=== PATIENT | female | born 1950 | race Hispanic/Latino ===

== ENCOUNTER 2017-05-08 22:49 | Emergency (ER) | payer MEDICARE ==
[2017-05-09 00:19] LABS: #Basophils 0.1 thou/uL (0.0-0.2); #Eosinphils 0.3 thou/uL (0.0-0.7); #Lymphocytes 1.5 thou/uL (1.20-3.40); #Monocytes 0.4 thou/uL (0.11-0.59); #Neutrophils 2.7 thou/uL (1.40-6.50); %Basophils 1.2 % (0.0-1.0); %Eosinophils 5.6 % (0.0-10.0); %Lymphocytes 30.1 % (21.0-51.0); %Monocytes 8.5 % (0.0-10.0); Mean Platelet Volume 7.7 fL (7.4-10.4); Red Blood Cell (RBC) Count 3.94 mill/uL (4.20-5.40); White Blood Cell (WBC) Count 4.8 thou/uL (4.8-10.8)
[2017-05-09 00:20] LABS: ALT (SGPT) 48 U/L (8-55); AST (SGOT) 80 U/L (5-34); Alkaline Phosphatase 151 U/L (40-150); Anion Gap 12 mmol/L (10-20); BUN (Urea Nitrogen) 12 mg/dL (9.8-20.1); Bilirubin, Total 1.5 mg/dL (0.2-1.2); Calc. Creatinine Clearance 0 mL/min (70-130); Carbon Dioxide 23 mmol/L (23-31); Chloride 107 mmol/L (98-107); Estimated GFR-MDRD 90; Globulin 3.9 g/dL (2.4-3.5); Protein, Total 6.9 g/dL (6.0-8.3)
[2017-05-09 00:21] LABS: Bilirubin Negative (Negative); Blood, Urine Negative (Negative); Glucose, Urine (Dipstick) Negative (Negative); Ketone, Urine Negative (Negative); Nitrite Negative (Negative); Protein, Urine (Dipstick) Negative (Neg-Trace); Urobilinogen 0.2 mg/dL (0.2-1.0)
[2017-05-09 00:24] LABS: Bacteria/HPF None Seen HPF (None Seen); Hyaline Casts/LPF 0-3 HYALINE CAST LPF (0-3 Hyaline); Squamous Epithelial 0-3 HPF (0-3); WBC/HPF 0-3 HPF (0-3)
[2017-05-09] MEDS ORDERED: Ibuprofen 800 MG TAB ONE (00:49)
== END 2017-05-09 00:53 | disposition home or self-care (01) ==
LOC: ERS 22:49
DX: R10.11 Right upper quadrant pain (principal); R10.12 Left upper quadrant pain; I10 Essential (primary) hypertension; K74.60 Unspecified cirrhosis of liver
CPT/HCPCS: 36415; 80053; 81003; 81015; 85025

== ENCOUNTER 2017-05-16 09:53 | Outpatient (CLI) | payer MEDICARE ==
--- NOTE | 2017-05-16 13:51 | ULT ---
HEPATIC DOPPLER ULTRASOUND: INDICATION: Abnormal liver. COMPARISON: Prior exam dated 10/14/10. TECHNIQUE: Sepulveda scale, color Doppler, vascular duplex, and spectral analysis was performed of the right upper qu adrant and hepatic vasculature. FINDINGS: The liver has a nodular contour consistent with cirrhosis. The spleen measures 10.8 cm in length. N o focal hepatic lesion is evident. No free fluid is noted. The right kidney measures 11.3 cm. Appr opriate hepatopetal flow is seen within the hepatic vasculature. IMPRESSION: 1. Findings of cirrhosis. 2. Appropriate hepatopetal flow is seen within the hepatic vasculature. POS: [facility]
== END 2017-05-16 09:54 | disposition home or self-care (01) ==
LOC: ULT 09:53
DX: K74.60 Unspecified cirrhosis of liver (principal); K76.0 Fatty (change of) liver, not elsewhere classified
CPT/HCPCS: 76705

== ENCOUNTER 2017-07-17 11:17 | Emergency (ER) | payer MEDICARE ==
[2017-07-17] MEDS ORDERED: ISOVUE-370 76%-LOCM 1 ML ONE (12:43)
--- NOTE | 2017-07-17 13:05 | RAD ---
CHEST 1 VIEW: HISTORY: Cough. Chest pain. COMPARISON: 10/14/12. FINDINGS: Cardiac silhouette is magnified by projection. Pulmonary vasculature is unremarkable. Mediastinum i s midline. There is no confluent airspace consolidation or evidence of pneumothorax. IMPRESSION: No active cardiopulmonary abnormalities are demonstrated. POS: [facility]
[2017-07-17 13:07] LABS: #Eosinphils 0.1 thou/uL (0.0-0.7); #Lymphocytes 1.7 thou/uL (1.20-3.40); #Monocytes 0.4 thou/uL (0.11-0.59); #Neutrophils 1.3 thou/uL (1.40-6.50); %Basophils 0.5 % (0.0-1.0); %Lymphocytes 47.7 % (21.0-51.0); %Neutrophils 36.8 % (42.0-75.0); Hemoglobin 13.3 g/dL (12.0-16.0); Mean Corpuscular HGB CONC 34.7 g/dL (32.0-36.0); Mean Corpuscular Hemoglobin 32.6 pg (27.0-31.0); Platelet Count 87 thou/uL (130-400); RBC Distribution Width 13.4 % (11.5-14.5); Red Blood Cell (RBC) Count 4.06 mill/uL (4.20-5.40); White Blood Cell (WBC) Count 3.5 thou/uL (4.8-10.8)
[2017-07-17 13:12] LABS: Bilirubin Negative (Negative); Blood, Urine Negative (Negative); Clarity CLEAR (Clear); Glucose, Urine (Dipstick) Negative (Negative); Leukocyte Negative (Negative); Nitrite Negative (Negative); Protein, Urine (Dipstick) Negative (Neg-Trace); Specific Gravity, Urine 1.007 (1.002-1.036)
[2017-07-17 13:50] LABS: ALT (SGPT) 66 U/L (8-55); AST (SGOT) 104 U/L (5-34); Albumin 2.9 g/dL (3.4-4.8); Alkaline Phosphatase 128 U/L (40-150); Anion Gap 11 mmol/L (10-20); BUN (Urea Nitrogen) 5 mg/dL (9.8-20.1); Bilirubin, Total 1.6 mg/dL (0.2-1.2); Calc. Creatinine Clearance 0 mL/min (70-130); Carbon Dioxide 24 mmol/L (23-31); Chloride 107 mmol/L (98-107); Estimated GFR-MDRD Greater than 90; Globulin 3.8 g/dL (2.4-3.5); Glucose 89 mg/dL (80-115); Lipase 42 U/L (8-78); Potassium 3.7 mmol/L (3.5-5.1); Protein, Total 6.7 g/dL (6.0-8.3); Sodium 138 mmol/L (136-145)
--- NOTE | 2017-07-17 15:43 | CT ---
CT ABDOMEN AND PELVIS WITH IV CONTRAST: History: 66-year-old female with history of cough. Patient claims she has a hernia. Prior cholecystectomy and hysterectomy. Comparison: 01-16-09 FINDINGS: Lung bases are clear. There is evidence for a moderate of ascites in the abdomen and pelvis. Liver co ntour nodularity is noted, evidence for cirrhosis without focal liver mass. Status post cholecystecto my. Pancreas is unremarkable. Minimal splenomegaly. No renal calculus or acute obstruction. Normal appearing appendix. Fat containing and acidic fluid containing periumbilical hernia. No bowel obstru ction, abscess or adenopathy. Some mild nonspecific central mesenteric fat stranding. IMPRESSION: Moderate ascites. Evidence of cirrhosis without focal liver mass. Fat and acidic fluid paraumbilical hernia. [place] opacity within the cecum. Normal appearing appendix. Minimal splenomegaly. No evidence for other significant acute process. POS: [facility]
== END 2017-07-17 15:08 | disposition home or self-care (01) ==
LOC: ERS 11:17
DX: K42.9 Umbilical hernia without obstruction or gangrene (principal); K74.60 Unspecified cirrhosis of liver; I10 Essential (primary) hypertension; Z79.899 Other long term (current) drug therapy
CPT/HCPCS: 36415; 71045; 74177; 80053; 81003; 83690; 85025

== ENCOUNTER 2017-11-15 09:50 | Outpatient (CLI) | payer MEDICARE ==
[2017-11-15 11:10] LABS: Estimated GFR-MDRD - POC Greater than 90
--- NOTE | 2017-11-15 12:42 | CT ---
CT ABDOMEN WITH AND WITHOUT CONTRAST: INDICATIONS: Abdominal pain with nausea, vomiting, and diarrhea. History of umbilical hernia. Surgery includes a cholecystectomy and a hysterectomy. Abdomen only exam is adequate for evaluation of diffuse abdomin al pain, as the lower intestinal tract and pelvis are not imaged. TECHNIQUE: Multiple axial tomograms obtained through the abdomen without IV enhancement. This was followed by [place] through the abdomen with IV contrast in the portal venous phase. Oral contrast was administere d. FINDINGS: The stomach is not well distended. There is diffuse mural thickening involving the stomach and pylor us, of uncertain significance. The lung bases are clear. The liver is small with irregular margins, consistent with changes of cirr hosis. The spleen is normal in size. The pancreas is unremarkable. Mild to moderate ascites is see n in the abdomen with fluid around the liver and spleen and in both colonic gutters. The adrenal glands and kidneys are unremarkable. A tiny cystic lesion in the posterior right renal c ortex is subcentimeter. No hydronephrosis. The visualized small bowel loops show nonspecific distention without evidence of dilatation. Finding s do not suggest bowel obstruction. The colon is only partially imaged but appears unremarkable. There is an anterior abdominal wall hernia seen on the last image, which is only partially evaluated. The anterior abdominal wall defect measures approximately 1.5 cm. Mesenteric fat herniated through this defect, and a hernia sac within the subcutaneous tissues measures 4.5 cm in width in the axial plane. IMPRESSION: 1. Small liver with irregular margins suggesting changes of cirrhosis. No splenomegaly or evidence of significant portal hypertension. 2. Moderate ascites. 3. Nonspecific small bowel distention, and evidence of mild fold thickening and mural thickening, al though the bowel is incompletely evaluated. 4. Small anterior abdominal wall hernia is incompletely imaged. 5. Nonspecific gastric wall thickening. POS: [facility]
[2017-11-15] MEDS ORDERED: Iopamidol 370 76% 100 ML VIAL ONE (15:07)
== END 2017-11-15 09:51 | disposition home or self-care (01) ==
LOC: BICCT 09:50 → CT 09:51
PROVIDERS: ATTEND Internal Medicine Gastroenterology
DX: K31.89 Other diseases of stomach and duodenum (principal); K63.89 Other specified diseases of intestine; K43.9 Ventral hernia without obstruction or gangrene; K76.89 Other specified diseases of liver; R18.8 Other ascites
CPT/HCPCS: 74170; 82565

== ENCOUNTER 2018-08-28 09:06 | Outpatient (CLI) | payer MEDICARE, OTHER ==
--- NOTE | 2018-08-28 11:17 | ULT ---
HEPATIC ULTRASOUND WITH DOPPLER: INDICATIONS: Cirrhosis. The patient is status post cholecystectomy. FINDINGS: The liver has a nodular contour, consistent with the history of cirrhosis. The liver is small, which is also consistent with the history of cirrhosis. No focal mass lesion identified. Doppler studies were performed with color Doppler and spectral analysis. The portal veins, hepatic v eins, hepatic artery, and splenic veins show normal blood flow with Doppler. The right portal vein i s not well demonstrated. There is evidence of moderate ascites. Borderline splenomegaly. The pancreas is obscured. IMPRESSION: Liver findings consistent with history of cirrhosis, as noted above. There is evidence of low volume ascites in both upper quadrants. Borderline splenomegaly. Hepatic vessels show normal blood flow w ith color Doppler and spectral analysis. POS: [facility]
== END 2018-08-28 09:07 | disposition home or self-care (01) ==
LOC: BICULT 09:06
PROVIDERS: ATTEND Surgery
DX: K74.60 Unspecified cirrhosis of liver (principal); K43.2 Incisional hernia without obstruction or gangrene; R18.8 Other ascites; R16.1 Splenomegaly, not elsewhere classified
CPT/HCPCS: 76705

== ENCOUNTER 2018-09-06 16:00 | Emergency (ER) | payer MEDICARE, OTHER ==
[2018-09-06] MEDS ORDERED: Metoclopramide HCl 10 MG/2 ML VIAL ONE (16:52)
[2018-09-06] MEDS ORDERED: diphenhydrAMINE 50 MG/ML VIAL ONE (16:52)
[2018-09-06 17:02] LABS: #Eosinphils 0.2 thou/uL (0.0-0.7); #Lymphocytes 1.3 thou/uL (1.20-3.40); #Monocytes 0.6 thou/uL (0.11-0.59); #Neutrophils 2.9 thou/uL (1.40-6.50); %Lymphocytes 26.5 % (21.0-51.0); %Monocytes 10.8 % (0.0-10.0); %Neutrophils 57.7 % (42.0-75.0); Hemoglobin 11.9 g/dL (12.0-16.0); Mean Corpuscular HGB CONC 33.2 g/dL (32.0-36.0); Mean Corpuscular Hemoglobin 31.2 pg (27.0-31.0); Mean Corpuscular Volume 93.9 fL (78.0-98.0); Mean Platelet Volume 8.1 fL (7.4-10.4); Platelet Count 81 thou/uL (130-400); RBC Distribution Width 13.1 % (11.5-14.5); Red Blood Cell (RBC) Count 3.83 mill/uL (4.20-5.40)
--- NOTE | 2018-09-06 17:05 | CT ---
FCT brain. HISTORY: Headache. Noncontrast enhanced CT images of the brain obtained. No evidence of intracranial masses, hemorrhages, strokes or contusion is seen. Ventricles are of norm al size. IMPRESSION: Normal CT brain.
[2018-09-06 17:21] LABS: ALT (SGPT) 30 U/L (8-55); AST (SGOT) 51 U/L (5-34); Albumin 3.1 g/dL (3.4-4.8); Alkaline Phosphatase 137 U/L (40-150); Anion Gap 9 mmol/L (10-20); BUN (Urea Nitrogen) 7 mg/dL (9.8-20.1); Bilirubin, Total 1.5 mg/dL (0.2-1.2); Calc. Creatinine Clearance 0 mL/min (70-130); Carbon Dioxide 27 mmol/L (23-31); Chloride 104 mmol/L (98-107); Estimated GFR-MDRD 85; Globulin 4.1 g/dL (2.4-3.5); Glucose 120 mg/dL (80-115); Potassium 3.6 mmol/L (3.5-5.1); Protein, Total 7.2 g/dL (6.0-8.3); Sodium 136 mmol/L (136-145)
== END 2018-09-06 19:36 | disposition home or self-care (01) ==
LOC: ERS 16:00
DX: R51 Headache (principal); I10 Essential (primary) hypertension; K74.60 Unspecified cirrhosis of liver; Z79.899 Other long term (current) drug therapy
CPT/HCPCS: 70450; 80053; 85025; 96365; 96375; J1200; J2765

== ENCOUNTER 2019-11-28 13:42 | Inpatient (IN) | payer MEDICARE, OTHER ==
[2019-11-28 15:09] VITALS: BMI 28.3
[2019-11-28] MEDS ORDERED: Calcium Carbonate 500 MG ChewTAB PO PRN (16:51)
[2019-11-28] MEDS ORDERED: Ondansetron ODT 4 MG TAB PO PRN (16:51)
[2019-11-28] MEDS ORDERED: Loperamide HCl 2 MG CAP PO PRN (16:51)
[2019-11-28] MEDS ORDERED: Benzonatate 100 MG CAP PO PRN (16:55)
[2019-11-28 17:59] LABS: Anion Gap 11 mmol/L (10-20); BUN (Urea Nitrogen) 12 mg/dL (9.8-20.1); Calc. Creatinine Clearance 80 mL/min (70-130); Calcium 8.3 mg/dL (7.8-10.44); Carbon Dioxide 20 mmol/L (23-31); Chloride 99 mmol/L (98-107); Estimated GFR-MDRD 80; Glucose 128 mg/dL (80-115); Lipase 49 U/L (8-78); Potassium 3.7 mmol/L (3.5-5.1); Sodium 126 mmol/L (136-145); Troponin I 0.014 ng/mL (< 0.028)
--- NOTE | 2019-11-28 18:08 | HP ---
PRIMARY CARE PHYSICIAN: Dr. Sena. CHIEF COMPLAINT: Shortness of breath x2 days. HISTORY OF PRESENT ILLNESS: The patient is a 68-year-old female with a past medical history significant for cirrhosis and hypertension, who presents to the ER for the above complaint. The patient reports that over the past several days, she has become increasingly short of breath. She reports that she has an associated nonproductive cough, fever, and diarrhea. She estimates that she has three stools per day. She denies any abdominal pain and vomiting. She denies any blood in her stools. She denies dysuria. She denies sore throat or headache. She reports that her sister tested positive for COVID a week ago that she has come into contact with her. She also reports that she has scheduled paracentesis approximately two times per month. She was scheduled to go yesterday, however, did not need it. Her abdominal ultrasound did not show a significant amount of abdominal fluid. For the aforementioned reasons, her family took her to [facility]. At the [facility] ER, the patient was found to be hypoxic, VBG pH 7.48, HCO3 20.5, CO2 28.6, PO2 43, Sp02 92% on room air with normal blood pressure, normal heart rate, and normal respiratory rate. She was placed on 2 L nasal cannula and her oxygen improved to 97%. She was found to be COVID negative, flu A positive. Chest x-ray showed a moderate large right pleural effusion. She had a negative troponin. She had a sodium of 122. Her INR was 0.9. Her WBCs were 3.9. Her platelets were 75. Her UA showed some moderate blood and some small bilirubin. Her T-bilirubin was 1.9 and the rest of her LFTs were within normal range. She was given 1 L of normal saline, Tylenol, Pepcid, and Zofran and sent to the [facility] for further evaluation and treatment. PAST MEDICAL HISTORY: 1. Hypertension. 2. Cirrhosis. SURGICAL HISTORY: 1. Hysterectomy. 2. Tubal ligation. 3. Cholecystectomy. SOCIAL HISTORY: The patient lives with her son. She is retired. She denies any history of smoking, alcohol, or illicit drug use. She lives in [place]. FAMILY HISTORY: Contributory for hypertension, contributory for diabetes. ALLERGIES: NO KNOWN ALLERGIES. HOME MEDICATIONS: 1. Spironolactone, unknown dose. 2. Furosemide twice a day, unknown dose. 3. Metoprolol, unknown dose. REVIEW OF SYSTEMS: All other review of systems are negative unless otherwise stated in the HPI. PHYSICAL EXAMINATION: VITAL SIGNS: Temperature 98.6 oral, blood pressure 129/52, pulse 89, respirations 18, 97% on 2 L nasal cannula. CONSTITUTIONAL: The patient is alert and oriented to person, place, and time. Nontoxic appearing. No acute distress. HEENT: Head; atraumatic, normocephalic. Eyes; PERRLA. Extraocular muscles are intact. Sclerae nonicteric. ENT; nares are patent bilaterally. Bilateral EACs patent. TMs are intact bilaterally. Oropharynx is clear. Uvula is midline. Moist mucous membranes. RESPIRATORY: Respirations are even and nonlabored. The patient has mild expiratory wheezes to auscultation. No rhonchi, no rales. CARDIOVASCULAR: S1, S2 appreciated. No murmurs, rubs, or gallops. ABDOMEN: Soft, nontender, slightly distended. Active bowel sounds. No guarding. No rigidity. No rebound. Negative Rovsing's sign. No abdominal bruit auscultated. EXTREMITIES: Bilateral upper extremities, full range of motion. Strength normal. Sensation intact. Palpable radial pulses. Bilateral lower extremities, full range of motion, normal strength, sensation intact. Palpable pedal pulses. No swelling. NEURO: The patient is alert and oriented to person, place, and time. Cranial nerves 2 through 12 intact. No focal deficits. PSYCH: The patient normal affect. Denies any suicidal, homicidal ideation. LABS AND DIAGNOSTICS: EKG, sinus rhythm. 96 beats per minute. Chest x-ray positive for [id number] right pleural effusion. Initial troponin negative. CK 79. VBGs, pH 7.48, bicarb 20.5, CO2 of 28.6, PO2 of 43. COVID negative. Flu A positive. Sodium 122, potassium 3.3, chloride 93, carbon dioxide 22, BUN 14, creatinine 0.9, glucose 137, T bilirubin 1.9, alkaline phosphatase 82, AST 28, ALT 59, GGT was 48. UA was positive for moderate blood, small bilirubin. PT 11.4, INR 0.9. WBCs 3.9, hemoglobin 12.4, hematocrit 34.7, platelets 75. IMPRESSION AND PLAN: 1. Acute hypoxic respiratory failure secondary to influenza A, admit the patient to telemetry floor inpatient status, expected length of stay at least two midnights. The patient presented with VBG pH 7.48, CO2 28.6, HCO3 20.5, PO2 43. EKG was sinus rhythm. Chest x-ray showed moderate to large right pleural effusion. She was flu A positive. Blood cultures and urine cultures were taken and are pending. Upon exam, patient is resting well. 2 L nasal cannula saturating 97% on room air. No respiratory distress. We will start Tamiflu. We will place the patient on droplet precautions. We will check another troponin. EKG was sinus rhythm, 96. We will order a BNP. We will recheck a BMP for baseline electrolyte status. 2. Right pleural effusion, [id number]. The patient presented with a PO2 of 43 on VBGs, SpO2 is 92% on room air. EKG was normal sinus rhythm, 96 beats per minute. On exam, patient was in no acute respiratory distress. We will consult Pulmonology to determine if therapeutic thoracentesis is necessary. We will place the patient on a fluid restriction of 2 L. We will check daily weights. We will get a baseline BNP and get a delta troponin. Supportive care. 3. Hyponatremia. The patient presented with a sodium of 122, baseline appears to be 130s. The patient received 1 L of normal saline at previous ER. We will get serum osmols, check a urine sodium and urine osmolality. We will check a TSH and a cortisol. We will fluid restrict the patient 2 L and we will hold diuretics until etiology confirmed. We will recheck a BMP in the a.m. 4. Cirrhosis, chronic. The patient reports that she gets paracentesis twice per month and was scheduled for paracentesis yesterday. Abdominal ultrasound showed that there was not enough fluid to perform paracentesis per patient. The patient's INR 0.9. The patient's platelets 75. T bilirubin is 1.9 with normal alkaline phosphatase, AST, ALT, and GGT. We will check PT/INR in the a.m. 5. Hypertension. The patient reports taking metoprolol, furosemide, and spironolactone, unknown dose. Awaiting nursing to confirm doses. We will start metoprolol. We will hold diuretics at this time until etiology of hyponatremia is determined. 6. Consult PT. No pharmaco-prophylaxis for DVT. SCDs for DVT prophylaxis. The patient is a full code and POA is going to be her daughter, Carmella Merrill, unknown number. 7. Discussed the case with Dr. Carlin. Job ID: [id number] MTDD
[2019-11-28] MEDS ORDERED: Furosemide 20 MG/2 ML VIAL SLOW IVP SCH (19:45)
[2019-11-28] MEDS ORDERED: Famotidine 20 MG TAB PO SCH (21:00)
[2019-11-28] MEDS: Acetaminophen 325 MG TAB PO PRN (21:03)
[2019-11-28] MEDS: Spironolactone 25 MG TAB PO SCH (21:03)
[2019-11-28] MEDS: Oseltamivir 75 MG CAP PO SCH (21:04)
[2019-11-29 04:53] LABS: INR-International Normal Ratio 1.3; PTT 32.6 sec (22.9-36.1); Prothrombin Time 16.6 sec (12.0-14.7)
[2019-11-29 05:01] LABS: #Basophils 0.1 thou/uL (0.0-0.2); #Eosinphils 0.2 thou/uL (0.0-0.7); #Lymphocytes 0.7 thou/uL (1.20-3.40); #Monocytes 0.5 thou/uL (0.11-0.59); #Neutrophils 3.5 thou/uL (1.40-6.50); %Basophils 1.4 % (0.0-1.0); %Lymphocytes 13.5 % (21.0-51.0); %Neutrophils 71.2 % (42.0-75.0); Hemoglobin 12.1 g/dL (12.0-16.0); Mean Corpuscular HGB CONC 33.6 g/dL (32.0-36.0); Mean Corpuscular Hemoglobin 30.8 pg (27.0-31.0); Mean Corpuscular Volume 91.7 fL (78.0-98.0); Mean Platelet Volume 9.3 fL (7.4-10.4); Platelet Count 76 thou/uL (130-400); RBC Distribution Width 13.6 % (11.5-14.5); Red Blood Cell (RBC) Count 3.91 mill/uL (4.20-5.40)
[2019-11-29 05:08] LABS: ALT (SGPT) 21 U/L (8-55); AST (SGOT) 47 U/L (5-34); Albumin 2.5 g/dL (3.4-4.8); Alkaline Phosphatase 93 U/L (40-110); Anion Gap 11 mmol/L (10-20); BUN (Urea Nitrogen) 11 mg/dL (9.8-20.1); Bilirubin, Total 1.3 mg/dL (0.2-1.2); Calc. Creatinine Clearance 81 mL/min (70-130); Calcium 8.6 mg/dL (7.8-10.44); Carbon Dioxide 20 mmol/L (23-31); Chloride 100 mmol/L (98-107); Estimated GFR-MDRD 81; Glucose 98 mg/dL (80-115); Potassium 3.4 mmol/L (3.5-5.1); Protein, Total 6.5 g/dL (6.0-8.3); Sodium 128 mmol/L (136-145)
[2019-11-29] MEDS ORDERED: Furosemide 20 MG/2 ML VIAL SLOW IVP SCH (09:00)
[2019-11-29] MEDS ORDERED: Amlodipine 5 MG TAB PO SCH (09:00)
[2019-11-29] MEDS: Oseltamivir 75 MG CAP PO SCH ×2 (09:51→20:28)
[2019-11-29] MEDS: Potassium Chloride 10 MEQ TAB PO SCH (09:51)
[2019-11-29] MEDS: Spironolactone 25 MG TAB PO SCH ×2 (09:51→20:28)
[2019-11-29] MEDS: Acetaminophen 325 MG TAB PO PRN (10:01)
[2019-11-29] MEDS ORDERED: Prevnar 13-Val Conj/PF 0.5 ML SYRINGE IM ONE (15:30)
--- NOTE | 2019-11-29 17:40 | CON ---
DATE OF CONSULTATION: 11/29/2019 HISTORY OF PRESENT ILLNESS: Ms. Baird is a 68-year-old female who presented with complaints of shortness of breath. She is flu positive. She reportedly was rapid screen COVID negative, but she also has a family member who has had COVID. She has cirrhosis and has frequent paracentesis. She admits that she is not on any type of fluid restriction. She reportedly had a chest x-ray showing effusion at [facility]. We have no radiographs here for me to review. I was consulted for pleural effusion. PAST MEDICAL HISTORY: Remarkable for 1. Cirrhosis. Dr. Sena is her GI doctor. 2. History of hypertension. 3. Status post hysterectomy and tubal ligation. 4. History of a cholecystectomy. SOCIAL HISTORY: She is a nonsmoker. She is not a drinker. FAMILY HISTORY: Negative for lung disease in early age. Prior to admission, she is on Lasix and Aldactone and a beta-aakash. She does not know what the doses are. REVIEW OF SYSTEMS: Otherwise negative. PHYSICAL EXAMINATION: GENERAL: She is in absolutely no distress. VITAL SIGNS: She is afebrile. Heart rate 80, respiratory rate is 18, oximetry is 94% on 2 L, blood pressure 119/70. HEAD AND NECK: Unremarkable. LUNGS: Clear. She has decreased breath sounds at the right base. HEART: Regular rhythm. S1, S2 are normal. ABDOMEN: Soft and nontender. She has a very large reducible umbilical hernia. She is mildly tender in this area, but this was reducible. EXTREMITIES: Without asymmetry or edema. NEUROLOGIC: Nonfocal. LABORATORY DATA: White count 5.0, hemoglobin 12.1, platelets 76,000. Sodium 128, potassium is not recorded on lab, chloride 100, bicarb 20, potassium is 3.4, BUN 11, creatinine 0.72. Bilirubin is 1.3, albumin is 2.5. IMPRESSION: Hepatic hydrothorax. She is minimally symptomatic. She does not need a thoracentesis in my opinion. She needs a fluid restriction and compliance with her fluid medications. She can be diuresed intravenously while she is here, although this effusion will resolve slowly. I do not have a radiograph to review. I do not doubt based on her exam that she has an effusion. There is nothing to lead me to believe that this would be malignant or infected. 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 This is a 50 min consult with greater than 50% of the time spent on unit with coordination of care. Job ID: [id number]
--- NOTE | 2019-11-29 18:06 | RAD ---
SINGLE VIEW OF THE CHEST: 11/29/19 INDICATIONS: History of shortness of breath. FINDINGS: There has been interval enlargement of the right sided pleural effusion. The pleural effusion is now large in size. There is some mild residual aeration of the right upper lobe. The left lung is clear. No acute osseous abnormality is evident. IMPRESSION: Large right sided pleural effusion. This is increased in size from the comparison dated 11/25/19. POS: [facility]
--- NOTE | 2019-11-29 18:54 | PDOC.HOSPP ---
- Subjective Encounter Date: 11/29/19 Encounter Time: 17:00 Subjective: Pt seen for followup re: acute hypoxic respiratory failure. Reports SOBOE. No fever. - Objective Vital Signs & Weight: Vital Signs (12 hours) Temp Pulse Resp BP BP Pulse Ox 11/29/19 15:47 97.9 F 83 17 129/75 95 11/29/19 14:21 121/57 L 11/29/19 11:28 99.7 F H 80 18 119/70 94 L 11/29/19 08:00 97 11/29/19 07:22 99.1 F 91 17 156/68 H 96 Weight Admit Weight 149 lb 9.6 oz Weight 149 lb 9.6 oz I&O: 11/28/19 11/29/19 11/30/19 06:59 06:59 06:59 Intake Total 480 960 Output Total 650 650 Balance -170 310 Result Diagrams: 11/29/19 04:28 11/29/19 04:28 Additional Labs: Labs and MARs reviewed by me EKG Reviewed by me: Yes (Tele: NSR) Hospitalist ROS - Review of Systems Constitutional: denies: fever, chills, sweats, weakness, malaise Respiratory: reports: SOB with excertion. denies: cough, dry, shortness of breath, hemoptysis, pleuritic pain, sputum, wheezing Cardiovascular: denies: chest pain, palpitations, orthopnea, paroxysmal noc. dyspnea, edema, light headedness Gastrointestinal: denies: nausea, vomiting, abdominal pain, diarrhea, constipation, melena, hematochezia Genitourinary: denies: dysuria, frequency, incontinence, hematuria, retention Skin: denies: rash, lesions, mayte, bruising - Medication Medications: Active Medications Generic Name Dose Route Start Last Admin Trade Name Freq PRN Reason Stop Dose Admin Acetaminophen 650 mg 11/28/19 16:51 11/29/19 10:01 Tylenol PO 650 mg Q4H PRN Administration Headache/Fever/Mild Pain (1-3) Benzonatate 100 mg 11/28/19 16:55 11/29/19 13:29 Tessalon PO 100 mg TIDPRN PRN Administration Cough Calcium Carbonate 1,000 mg 11/28/19 16:51 11/28/19 21:03 Tums PO 1,000 mg Q4H PRN Administration Heartburn or Indigestion Furosemide 20 mg 11/29/19 09:00 11/29/19 09:51 Lasix SLOW IVP 20 mg DAILY KATINA Administration Loperamide HCl 2 mg 11/28/19 16:51 11/29/19 13:29 Imodium PO 2 mg PRN PRN Administration Diarrhea/Loose Stools Metoprolol Succinate 25 mg 11/29/19 09:00 11/29/19 09:51 Toprol Xl PO 25 mg DAILY KATINA Administration Oseltamivir Phosphate 75 mg 11/28/19 21:00 11/29/19 09:51 Tamiflu PO 12/03/19 09:01 75 mg BID KATINA Administration Pantoprazole Sodium 40 mg 11/29/19 09:00 11/29/19 09:51 Protonix PO 40 mg DAILY KATINA Administration Potassium Chloride 10 meq 11/29/19 09:00 11/29/19 09:51 Klor-Con 10 PO 10 meq DAILY KATINA Administration Spironolactone 25 mg 11/28/19 21:00 11/29/19 09:51 Aldactone PO 25 mg BID KATINA Administration - Exam General Appearance: NAD Eye: anicteric sclera ENT: no oropharyngeal lesions, moist mucosa Neck: supple, symmetric, no thyromegaly, no lymphadenopathy Heart: RRR, no gallops, no rubs, normal peripheral pulses Respiratory: CTAB Respiratory - other findings: Absent air entry right base Gastrointestinal: soft, non-tender, non-distended, normal bowel sounds Skin: normal turgor Psychiatric: normal affect, normal behavior, oriented to person, oriented to place Hosp A/P (1) Acute respiratory failure with hypoxia Code(s): J96.01 - ACUTE RESPIRATORY FAILURE WITH HYPOXIA Status: Acute (2) Influenza A Code(s): J10.1 - FLU DUE TO OTH IDENT INFLUENZA VIRUS W OTH RESP MANIFEST Status: Acute (3) Pleural effusion Code(s): J90 - PLEURAL EFFUSION, NOT ELSEWHERE CLASSIFIED Status: Acute (4) Hyponatremia Code(s): E87.1 - HYPO-OSMOLALITY AND HYPONATREMIA Status: Acute (5) Cirrhosis Code(s): K74.60 - UNSPECIFIED CIRRHOSIS OF LIVER Status: Chronic (6) Hypertension Code(s): I10 - ESSENTIAL (PRIMARY) HYPERTENSION Status: Chronic - Plan Continue Tamiflu Could not find chest xray on chart, will check portable CXR Sodium improved to 128. Replace potassium.
[2019-11-30 04:54] LABS: #Eosinphils 0.1 thou/uL (0.0-0.7); #Lymphocytes 0.7 thou/uL (1.20-3.40); #Monocytes 0.4 thou/uL (0.11-0.59); #Neutrophils 2.1 thou/uL (1.40-6.50); %Eosinophils 3.2 % (0.0-10.0); %Lymphocytes 21.8 % (21.0-51.0); %Monocytes 13.1 % (0.0-10.0); %Neutrophils 61.9 % (42.0-75.0); Hemoglobin 11.1 g/dL (12.0-16.0); Mean Corpuscular Hemoglobin 30.1 pg (27.0-31.0); Mean Corpuscular Volume 91.2 fL (78.0-98.0); Mean Platelet Volume 7.6 fL (7.4-10.4); Platelet Count 67 thou/uL (130-400); RBC Distribution Width 13.4 % (11.5-14.5); Red Blood Cell (RBC) Count 3.67 mill/uL (4.20-5.40); White Blood Cell (WBC) Count 3.3 thou/uL (4.8-10.8)
[2019-11-30 05:05] LABS: Anion Gap 10 mmol/L (10-20); BUN (Urea Nitrogen) 10 mg/dL (9.8-20.1); Calc. Creatinine Clearance 77 mL/min (70-130); Calcium 8.1 mg/dL (7.8-10.44); Carbon Dioxide 24 mmol/L (23-31); Chloride 99 mmol/L (98-107); Estimated GFR-MDRD 76; Glucose 89 mg/dL (80-115); Potassium 3.5 mmol/L (3.5-5.1); Sodium 129 mmol/L (136-145)
[2019-11-30] MEDS: Spironolactone 25 MG TAB PO SCH ×2 (08:57→20:16)
[2019-11-30] MEDS: Potassium Chloride 10 MEQ TAB PO SCH (08:57)
[2019-11-30] MEDS: Furosemide 40 MG/4 ML VIAL SLOW IVP SCH (08:58)
[2019-11-30] MEDS: Oseltamivir 75 MG CAP PO SCH ×2 (08:58→20:16)
[2019-11-30] MEDS: Acetaminophen 325 MG TAB PO PRN ×2 (14:35→20:16)
[2019-11-30] MEDS ORDERED: Furosemide 40 MG/4 ML VIAL SLOW IVP SCH (15:30)
--- NOTE | 2019-11-30 17:42 | PDOC.HOSPP ---
- Subjective Encounter Date: 11/30/19 Encounter Time: 17:42 Subjective: Pt seen for followup - acute hypoxic respiratory failure. Denies chest pain. SOBOE+. - Objective Vital Signs & Weight: Vital Signs (12 hours) Temp Pulse Resp BP Pulse Ox 11/30/19 16:05 98 F 67 18 126/66 96 11/30/19 11:09 98 F 74 20 139/61 97 11/30/19 08:15 96 11/30/19 08:14 97.5 F L 83 18 134/62 96 Weight Admit Weight 149 lb 9.6 oz Weight 149 lb 8 oz I&O: 11/29/19 11/30/19 12/01/19 06:59 06:59 06:59 Intake Total 480 1060 Output Total 650 650 Balance -170 410 Result Diagrams: 11/30/19 04:23 11/30/19 04:23 Additional Labs: Labs and MARs reviewed by me EKG Reviewed by me: Yes (Tele: NSR) Hospitalist ROS - Review of Systems Respiratory: reports: SOB with excertion. denies: cough, dry, shortness of breath, hemoptysis, pleuritic pain, sputum, wheezing Cardiovascular: denies: chest pain, palpitations, orthopnea, paroxysmal noc. dyspnea, edema, light headedness - Medication Medications: Active Medications Generic Name Dose Route Start Last Admin Trade Name Freq PRN Reason Stop Dose Admin Acetaminophen 650 mg 11/28/19 16:51 11/30/19 14:35 Tylenol PO 650 mg Q4H PRN Administration Headache/Fever/Mild Pain (1-3) Benzonatate 100 mg 11/28/19 16:55 11/29/19 13:29 Tessalon PO 100 mg TIDPRN PRN Administration Cough Calcium Carbonate 1,000 mg 11/28/19 16:51 11/28/19 21:03 Tums PO 1,000 mg Q4H PRN Administration Heartburn or Indigestion Furosemide 40 mg 11/30/19 09:00 11/30/19 08:58 Lasix SLOW IVP 40 mg DAILY KATINA Administration Furosemide 40 mg 11/30/19 15:30 11/30/19 16:08 Lasix SLOW IVP 11/30/19 18:00 40 mg NOW KATINA Administration Loperamide HCl 2 mg 11/28/19 16:51 11/29/19 13:29 Imodium PO 2 mg PRN PRN Administration Diarrhea/Loose Stools Metoprolol Succinate 25 mg 11/29/19 09:00 11/30/19 08:58 Toprol Xl PO 25 mg DAILY KATINA Administration Oseltamivir Phosphate 75 mg 11/28/19 21:00 11/30/19 08:58 Tamiflu PO 12/03/19 09:01 75 mg BID KATINA Administration Pantoprazole Sodium 40 mg 11/29/19 09:00 11/30/19 08:58 Protonix PO 40 mg DAILY KATINA Administration Potassium Chloride 10 meq 11/29/19 09:00 11/30/19 08:57 Klor-Con 10 PO 10 meq DAILY KATINA Administration Spironolactone 25 mg 11/28/19 21:00 11/30/19 08:57 Aldactone PO 25 mg BID KATINA Administration - Exam General Appearance: awake alert Eye: anicteric sclera ENT: moist mucosa Neck: supple Heart: RRR Respiratory - other findings: R base absent breath sounds Gastrointestinal: soft, non-tender, normal bowel sounds, distended Musculoskeletal: no muscle wasting Psychiatric: normal affect, normal behavior Hosp A/P (1) Acute respiratory failure with hypoxia Code(s): J96.01 - ACUTE RESPIRATORY FAILURE WITH HYPOXIA Status: Acute (2) Influenza A Code(s): J10.1 - FLU DUE TO OTH IDENT INFLUENZA VIRUS W OTH RESP MANIFEST Status: Acute (3) Pleural effusion Code(s): J90 - PLEURAL EFFUSION, NOT ELSEWHERE CLASSIFIED Status: Acute (4) Hyponatremia Code(s): E87.1 - HYPO-OSMOLALITY AND HYPONATREMIA Status: Acute (5) Cirrhosis Code(s): K74.60 - UNSPECIFIED CIRRHOSIS OF LIVER Status: Chronic (6) Hypertension Code(s): I10 - ESSENTIAL (PRIMARY) HYPERTENSION Status: Chronic - Plan No plan for thoracentesis at this time (cirrhosis related pleural effusion). Try to wean off of oxygen. Pt is on Tamiflu Sodium improved to 129 today. Hypokalemia resolved.
[2019-11-30] MEDS ORDERED: hydrOXYzine 25 MG TAB PO PRN (23:05)
[2019-12-01] MEDS: Furosemide 40 MG/4 ML VIAL SLOW IVP SCH ×3 (06:00→13:54)
[2019-12-01] MEDS: Potassium Chloride 10 MEQ TAB PO SCH (08:45)
[2019-12-01] MEDS: Acetaminophen 325 MG TAB PO PRN ×2 (08:45→13:53)
[2019-12-01] MEDS: Oseltamivir 75 MG CAP PO SCH (08:45)
[2019-12-01] MEDS: Spironolactone 25 MG TAB PO SCH (08:45)
[2019-12-01 14:56] LABS: Hemoglobin 12.3 g/dL (12.0-16.0); Mean Corpuscular HGB CONC 33.5 g/dL (32.0-36.0); Mean Corpuscular Hemoglobin 30.7 pg (27.0-31.0); Mean Corpuscular Volume 91.4 fL (78.0-98.0); Mean Platelet Volume 7.9 fL (7.4-10.4); Platelet Count 80 thou/uL (130-400); RBC Distribution Width 13.6 % (11.5-14.5); Red Blood Cell (RBC) Count 4.01 mill/uL (4.20-5.40)
[2019-12-01 15:13] LABS: Anion Gap 14 mmol/L (10-20); BUN (Urea Nitrogen) 14 mg/dL (9.8-20.1); Calc. Creatinine Clearance 63 mL/min (70-130); Calcium 8.4 mg/dL (7.8-10.44); Carbon Dioxide 20 mmol/L (23-31); Chloride 98 mmol/L (98-107); Estimated GFR-MDRD 62; Glucose 120 mg/dL (80-115); Potassium 3.8 mmol/L (3.5-5.1); Sodium 128 mmol/L (136-145)
--- NOTE | 2019-12-01 15:24 | RAD ---
EXAM: Single view of the chest HISTORY: Pleural effusions COMPARISON: 11/29/2019 FINDINGS: Single view of the chest shows a normal sized cardiomediastinal silhouette. There is a stab le large right pleural effusion. No left pleural effusion. The bones are unremarkable. IMPRESSION: Stable large right pleural effusion
[2019-12-01 15:55] VITALS: TEMP 97.8
[2019-12-01 17:33] VITALS: BP 126/57
--- NOTE | 2019-12-02 00:26 | DIS ---
DATE OF ADMISSION: 11/28/2019 DATE OF DISCHARGE: 12/01/2019 DISCHARGE DIAGNOSES: 1. Influenza A. 2. Hyponatremia, likely secondary to cirrhosis and pleural effusion. 3. Acute hypoxic respiratory failure, secondary to large right pleural effusion/hepatic hydrothorax. 4. Anemia 5. Rash left shoulder and left leg- possibly eczema versus dry skin CONSULTATIONS: Dr. Akash Canales with pulmonary BRIEF HISTORY OF PRESENT ILLNESS: This is a 68-year-old female, with past medical history of cirrhosis and hypertension, presented with increasing shortness of breath over the past few days. Patient also reported some diarrhea for the past few days, mild sore throat and runny nose. She had a sister, who tested positive for COVID one week prior. She had gone for scheduled paracentesis and was told she did not have any significant ascites. She went to [facility], where she was borderline hypoxic with O2 saturation of 92% on room air. She was placed on 2 L nasal cannula. She was tested negative for COVID, however, was flu A positive. Chest x-ray showed a large right pleural effusion. She was admitted for further workup. HOSPITAL COURSE: Acute hypoxic respiratory failure secondary to influenza A and large right pleural effusion: Patient was started on Tamiflu and received three days of this while in the hospital. She was also diuresed with IV Lasix 40 mg b.i.d for pleural effusion. She was seen by pulmonary with regards to thoracentesis and they felt that no intervention is needed at this time. Of note, she did have a recent thoracentesis on November 20 with normal body fluid culture. She was eventually weaned off oxygen. Repeat chest Xray on day of discharge showed stable pleural effusion. She was advised to follow up with PCP in a week, be compliant with her diuretics and get repeat chest X ray in two weeks. She was advised to come back to the hospital if she has recurrent shortness of breath. She was also prescribed tamiflu for two more days on discharge. Hyponatremia: patient had low sodium of 128 to 129. This likely from cirrhosis. She should continue with fluid restriction and diuretics. Cirrhosis: Patient had abd ultrasound that showed no ascites. Her spironolactone was switched to 25 mg twice daily due to systolic blood pressures in the 100s. She will follow up with her GI doctor and scheduled paracentesis on Tuesday if needed Rash: patient reported itchy rash on left arm and left leg, mildly papular but not blanching. Denied starting any new medicines recently. She was given a prescription for hydrocortisone prn since it appeared eczematous and should follow up with PCP. She denied burning or tingling or fevers that would be consistent with shingles. DISCHARGE PHYSICAL EXAMINATION: VITAL SIGNS: Temp 97.8, HR 68, RR 18, O2 saturation 96% on room air, and blood pressure 101/56. GENERAL: The patient is alert, awake, and oriented x3. CVS: Regular rate and rhythm with no murmurs, rubs, or gallops. LUNGS: Patient has diffusely diminished breath sounds on the right side. ABDOMEN: Positive bowel sounds, soft, mildly distended, however, no significant ascites noted on exam. EXTREMITIES: There is no significant edema. She has telangiectasias on lower extremities. Patient is noted to have multiple excoriations in her lower extremities. She does have very dry skin in her lower extremities. She also has a mild papular rash on her left arm, however, does not appear like urticaria. PERTINENT LABORATORY DATA: CBC, 11/30: White count 4.0, hemoglobin 12.3, hematocrit 36.6, and platelet count of 80. BMP, 11/30: Sodium 128, potassium 3.8, chloride 98, bicarb 20, BUN 14, and creatinine 0.90. LFTs: AST 47, ALT 21, total bilirubin 1.3, and direct bilirubin 0.7. UA: Negative. PERTINENT IMAGING: Chest x-ray, 11/28: Large right-sided pleural effusion, increased in size. Chest x-ray, 11/30: Stable large right pleural effusion. DISCHARGE CONDITION: Stable. ACTIVITY: As tolerated. DIET: Heart-healthy diet with 1 L fluid restriction. DISCHARGE MEDICATIONS: Medication changes: 1. Spironolactone reduced to 25 mg p.o. b.i.d. 2. Furosemide increased to 40 mg p.o. b.i.d. New prescriptions: 1. Tamiflu 75 mg p.o. b.i.d., quantity 5. 2. Hydrocortisone, one tube, apply a thin film p.r.n. for itching. Discontinued medications: Amlodipine. DISCHARGE INSTRUCTIONS: Patient to follow up with her PCP in a week. Consider getting repeat LFTs done as an outpatient since it was mildly elevated. Consider getting a repeat BMP in a week to follow up hyponatremia. A repeat chest x-ray in 2 weeks for pleural effusion. Job ID: [id number] [facility]
== END 2019-12-01 18:35 | disposition home or self-care (01) | DRG 432 ==
LOC: 2NO 14:26 → OBSVTOIN 16:50
PROVIDERS: ADMIT Internal Medicine; ATTEND Internal Medicine
DX: K74.60 Unspecified cirrhosis of liver (principal); J96.01 Acute respiratory failure with hypoxia; E87.1 Hypo-osmolality and hyponatremia; J94.8 Other specified pleural conditions; J91.8 Pleural effusion in other conditions classified elsewhere; J10.1 Influenza due to other identified influenza virus with other respiratory manifestations; I10 Essential (primary) hypertension; E87.6 Hypokalemia; L30.9 Dermatitis, unspecified; L85.3 Xerosis cutis; D64.9 Anemia, unspecified; Z79.899 Other long term (current) drug therapy; Z90.49 Acquired absence of other specified parts of digestive tract; Z98.51 Tubal ligation status; Z90.710 Acquired absence of both cervix and uterus
CPT/HCPCS: 36415; 36600; 71045; 80048; 80053; 82533; 83690; 83880; 83930; 83935; 84300; 84443; 84484; 85025; 85027; 85610; 85730; J1940

== ENCOUNTER 2020-07-17 23:18 | Inpatient (IN) | payer MEDICARE, OTHER ==
--- NOTE | 2020-07-17 23:39 | CT ---
CT HEAD WITHOUT IV CONTRAST COMPARISON: 09/06/2018 HISTORY: Altered mental status. Aphasia. TECHNIQUE: Axial CT imaging at 5 mm intervals from vertex through skull base without contrast FINDINGS: Few scattered small areas of diminished attenuation are seen in the subcortical white matter which ar e nonspecific but likely reflective of mild chronic small vessel ischemic changes similar to prior study. There is no evidence of an acute infarction, hemorrhage, mass effect, or midline shift. The ve ntricular system is normal in size, shape, and position. Skull base has a normal CT appearance. Visualized paranasal sinuses are clear. Osseous structures appear intact. No significant interval change from prior exam IMPRESSION: 1. No acute intracranial abnormality demonstrated. 2. Above findings discussed with Dr. Green in the emergency department on 07/17/2020 at 2334 hours.
[2020-07-17 23:45] LABS: #Eosinphils 0.1 thou/uL (0.0-0.7); #Lymphocytes 1.8 thou/uL (1.20-3.40); #Neutrophils 4.3 thou/uL (1.40-6.50); %Basophils 0.5 % (0.0-1.0); %Eosinophils 0.8 % (0.0-10.0); %Lymphocytes 24.5 % (21.0-51.0); %Monocytes 14.2 % (0.0-10.0); %Neutrophils 60.1 % (42.0-75.0); Hemoglobin 13.4 g/dL (12.0-16.0); Mean Corpuscular HGB CONC 32.9 g/dL (32.0-36.0); Mean Corpuscular Hemoglobin 28.9 pg (27.0-31.0); Mean Corpuscular Volume 87.9 fL (78.0-98.0); Platelet Count 102 thou/uL (130-400); RBC Distribution Width 15.2 % (11.5-14.5); Red Blood Cell (RBC) Count 4.63 mill/uL (4.20-5.40); White Blood Cell (WBC) Count 7.2 thou/uL (4.8-10.8)
[2020-07-17 23:52] LABS: INR-International Normal Ratio 1.1; PTT 30.4 sec (22.9-36.1); Prothrombin Time 14.3 sec (12.0-14.7)
--- NOTE | 2020-07-18 | RAD ---
EXAM: CHEST ONE VIEW HISTORY: Altered mental status. COMPARISON: 07/16/2020 FINDINGS: The cardiac silhouette and pulmonary vasculature are within normal limits. Small right pleural effusi on is again seen overall similar to prior study with associated atelectasis. Left lung remains clear. Chest is overall stable compared to prior exam. IMPRESSION: Small right pleural effusion similar to study on 07/16/2020.
[2020-07-18 00:05] LABS: ALT (SGPT) 21 U/L (8-55); AST (SGOT) 36 U/L (5-34); Albumin 2.8 g/dL (3.4-4.8); Alkaline Phosphatase 146 U/L (40-110); Anion Gap 17 mmol/L (10-20); BUN (Urea Nitrogen) 38 mg/dL (9.8-20.1); Bilirubin, Total 1.5 mg/dL (0.2-1.2); Calc. Creatinine Clearance 0 mL/min (70-130); Calcium 8.8 mg/dL (7.8-10.44); Carbon Dioxide 20 mmol/L (23-31); Chloride 93 mmol/L (98-107); Globulin 3.8 g/dL (2.4-3.5); Glucose 103 mg/dL (80-115); Potassium 4.5 mmol/L (3.5-5.1); Protein, Total 6.6 g/dL (5.8-8.1); Sodium 125 mmol/L (136-145)
[2020-07-18 03:05] VITALS: BMI 22.6
--- NOTE | 2020-07-18 05:21 | PDOC.HHP ---
Hospitalist [facility] History of Present Illness: This is a 69-year-old female patient with a history of liver cirrhosis and pleural effusion status post multiple thoracentesis who presents today on account of altered mental status. Of note she was discharged on 07/16/2020 after being managed for recurrent right hydrothorax requiring repeated thoracentesis. Last thoracentesis was on the day of discharge 07/16/2020. She did test positive for Covid on 07/12/2020. Patient's daughter also noted that the entire family was positive in May. At last discharge she was scheduled for TIPSS procedure History was taken from her daughter as patient was altered at the time of assessment. Daughter noted that she has been acting strangely for 3 hours prior to arrival. She has also been nonadherent to her lactulose regimen. For the past couple of days however she has been also complaining of intermittent cramps in the upper limbs and lower limbs. She denied any other systemic symptoms of fever dysuria frequency chest pain or cough. There has been no history of fall or head trauma. At presentation her blood pressure was 125/57, pulse 80, respiratory rate 16, temperature 97.3. Saturating at 100% on room air. Labs showed low platelets of 102, sodium of 125, bicarb 20, creatinine 1.76, total bilirubin 1.5 alkaline phosphatase [address] scan of her head revealed no acute intracranial process chest x-ray showed small right pleural effusion unchanged from yesterday 2 days ago. She was started on lactulose. Hospitalist team consulted for admission Allergies/Adverse Reactions: Allergy/AdvReac Type Severity Reaction Status Date / Time No Known Allergies Allergy Verified 07/18/20 03:08 Home Medications: Medication Instructions Recorded Confirmed Type Metoprolol Succinate 25 mg PO DAILY 11/28/19 07/18/20 History Furosemide 120 mg PO DAILY 03/14/20 07/18/20 History Lactulose 10 GM/15ML Oral Lyric 20 gm PO TID 03/14/20 07/18/20 History [Lactulose] Omeprazole 40 mg PO DAILY 03/14/20 07/18/20 History Spironolactone 100 mg PO DAILY 07/12/20 07/18/20 History Past History: PMHx: liver cirrhosis and pleural effusion status post multiple thoracentesis PSHx:Hysterectomy FHx:None of significance Social:No alcohol, drug or smoking history Hospitalist IMTIAZ CASANOVA ROS unobtainable: due to mental status Hospitalist Exam Vitals: Vital Signs (12 hours) Temp Pulse Resp BP Pulse Ox 07/18/20 02:59 97.7 F 71 18 93/60 100 Weight Weight 132 lb General - other findings: Awake however confused. Eye: PERRL ENT: normocephalic atraumatic Heart: RRR, no murmur, no gallops Respiratory: CTAB, no wheezes, no rales Gastrointestinal: soft, non-tender, non-distended Extremities: no cyanosis, no clubbing, no edema Neurological: cranial nerve grossly intact, no focal deficits Psychiatric: oriented to person Hospitalist Results Result Diagrams: 07/20/20 06:01 07/20/20 06:01 Lab results: Laboratory Last Values WBC 7.2 thou/uL (4.8-10.8) 07/17/20 23:25 RBC 4.63 mill/uL (4.20-5.40) 07/17/20 23:25 Hgb 13.4 g/dL (12.0-16.0) 07/17/20 23:25 Hct 40.7 % (36.0-47.0) 07/17/20 23:25 MCV 87.9 fL (78.0-98.0) 07/17/20 23:25 MCH 28.9 pg (27.0-31.0) 07/17/20 23:25 MCHC 32.9 g/dL (32.0-36.0) 07/17/20 23:25 RDW 15.2 % (11.5-14.5) H 07/17/20 23:25 Plt Count 102 thou/uL (130-400) L 07/17/20 23:25 MPV 8.0 fL (7.4-10.4) 07/17/20 23:25 Neutrophils % 60.1 % (42.0-75.0) 07/17/20 23:25 Neutrophils % (Manual) Not Reportable 07/17/20 23:25 Lymphocytes % 24.5 % (21.0-51.0) 07/17/20 23:25 Monocytes % 14.2 % (0.0-10.0) H 07/17/20 23:25 Eosinophils % 0.8 % (0.0-10.0) 07/17/20 23:25 Basophils % 0.5 % (0.0-1.0) 07/17/20 23:25 Neutrophils # 4.3 thou/uL (1.40-6.50) 07/17/20 23:25 Lymphocytes # 1.8 thou/uL (1.20-3.40) 07/17/20 23:25 Monocytes # 1.0 thou/uL (0.11-0.59) H 07/17/20 23:25 Eosinophils # 0.1 thou/uL (0.0-0.7) 07/17/20 23:25 Basophils # 0.0 thou/uL (0.0-0.2) 07/17/20 23:25 PT 14.3 sec (12.0-14.7) 07/17/20 23:25 INR 1.1 07/17/20 23:25 APTT 30.4 sec (22.9-36.1) 07/17/20 23:25 Sodium 125 mmol/L (136-145) L 07/17/20 23:25 Potassium 4.5 mmol/L (3.5-5.1) 07/17/20 23:25 Chloride 93 mmol/L (98-107) L 07/17/20 23:25 Carbon Dioxide 20 mmol/L (23-31) L 07/17/20 23:25 Anion Gap 17 mmol/L (10-20) 07/17/20 23:25 BUN 38 mg/dL (9.8-20.1) H 07/17/20 23:25 Creatinine 1.76 mg/dL (0.6-1.1) H 07/17/20 23:25 Estimated GFR (MDRD) 29 07/17/20 23:25 Glucose 103 mg/dL (80-115) 07/17/20 23:25 Calcium 8.8 mg/dL (7.8-10.44) 07/17/20 23:25 Total Bilirubin 1.5 mg/dL (0.2-1.2) H 07/17/20 23:25 AST 36 U/L (5-34) H 07/17/20 23:25 ALT 21 U/L (8-55) 07/17/20 23:25 Alkaline Phosphatase 146 U/L (40-110) H 07/17/20 23:25 Ammonia 178 umol/L (18-72) H 07/18/20 00:15 Troponin I 0.026 ng/mL (< 0.028) 07/17/20 23:25 Serum Total Protein 6.6 g/dL (5.8-8.1) 07/17/20 23:25 Albumin 2.8 g/dL (3.4-4.8) L 07/17/20 23:25 Globulin 3.8 g/dL (2.4-3.5) H 07/17/20 23:25 Albumin/Globulin Ratio 0.7 g/dL (1.2-2.2) L 07/17/20 23:25 Hospitalist H&P A/P Plan: This is a 69-year-old female patient with a recent history of Covid infection, decompensated cirrhosis with recurrent pleural effusions recurrent thoracentesis who presents today with altered mental status concerning for hepatic encephalopathy. Hepatic encephalopathy History of cirrhosis with ammonia at 178. Unclear etiologylikely lactulose nonadherence. However CT brain was negative, will check UDS, UA and blood culture just in case there could be underlying infection Received lactulose if mild improvement Continue lactulose 30 mils every 2-3 until she passes a stool We will continue on lactulose 30 mils 3 times daily for an average of 2-3 stools per day. Patient has been scheduled for TIPS procedure next week Consider GI consult in a.m. Pleural effusion This is mild Would have to be monitored Iron think she will need thoracentesis now. Hyponatremia Sodium 125 Likely secondary to cirrhosis This is however stable We will monitor. CKD Stable Concerns for hepatorenal syndrome on previous admission Monitor Nephrology consult if indicated. VT prophylaxisLovenox CODE STATUSfull
[2020-07-18 06:56] LABS: Bilirubin Negative (Negative); Blood, Urine Negative (Negative); Clarity Clear (Clear); Glucose, Urine (Dipstick) Normal (Negative); Ketone, Urine Negative (Negative); Leukocyte Negative Leu/uL (Negative); Nitrite Negative (Negative); Protein, Urine (Dipstick) Negative (Neg-Trace); RBC/HPF 0-3 HPF (0-3); Specific Gravity, Urine 1.013 (1.002-1.036); Squamous Epithelial 0-3 HPF (0-3); Urobilinogen Normal mg/dL (Less than 2); WBC/HPF 0-3 HPF (0-3); pH, Urine 5.5 (5.0-9.0)
[2020-07-18 06:57] LABS: Amphetamine Not Detected (NotDetected); Barbiturates Screen Not Detected (NotDetected); Benzodiazepine Screen Not Detected (NotDetected); Cocaine Metabolite Screen Not Detected (NotDetected); Medtox Control Line Valid? VALID (VALID); Medtox Reader # READER 4; Methadone Not Detected (NotDetected); Methamphetamine Not Detected (NotDetected); Opiate Screen Not Detected (NotDetected); Oxycodone Screen Not Detected (NotDetected); Phencyclidine (PCP) Not Detected (NotDetected); THC/Cannabinoid Screen Not Detected (NotDetected); Tricyclic Screen Not Detected (NotDetected)
[2020-07-18 06:58] LABS: Bacteria/HPF 1+ HPF (None Seen); Urine Culture Reflex Yes Yes
--- NOTE | 2020-07-18 08:33 | PDOC.HOSPP ---
- Subjective Subjective: Patient was seen examined at bedside. Per nursing staff, her mentation appeared to be improved. No significant bowel movement. She still confused, follows some commands. No family member at bedside. No fever. - Objective Vital Signs & Weight: Vital Signs (12 hours) Temp Pulse Resp BP Pulse Ox 07/18/20 07:47 97.2 F L 83 20 108/58 L 100 07/18/20 02:59 97.7 F 71 18 93/60 100 Weight Weight 132 lb Result Diagrams: 07/17/20 23:25 07/18/20 09:25 Radiology Reviewed by me: Yes EKG Reviewed by me: Yes Hospitalist ROS - Medication Medications: Active Medications Generic Name Dose Route Start Last Admin Trade Name Freq PRN Reason Stop Dose Admin Lactulose 30 gm 07/18/20 05:30 07/18/20 06:11 Lactulose 20 Gm/30 Ml Udcup PO 30 gm Q2H KATINA Administration Hospitalist Exam Vitals: Vital Signs (12 hours) Temp Pulse Resp BP Pulse Ox 07/18/20 07:47 97.2 F L 83 20 108/58 L 100 07/18/20 02:59 97.7 F 71 18 93/60 100 Weight Weight 132 lb General Appearance: NAD General - other findings: Confused Eye: PERRL ENT: normocephalic atraumatic Neck: supple Heart: RRR Respiratory: CTAB Gastrointestinal: soft Extremities: no cyanosis Skin: normal turgor Neurological: cranial nerve grossly intact Musculoskeletal: normal tone Psychiatric: normal affect, normal behavior, somnolent, lethargic Hosp A/P (1) Acute hepatic encephalopathy Code(s): K72.00 - ACUTE AND SUBACUTE HEPATIC FAILURE WITHOUT COMA Status: Acute (2) Cirrhosis Code(s): K74.60 - UNSPECIFIED CIRRHOSIS OF LIVER Status: Chronic (3) Hypertension Code(s): I10 - ESSENTIAL (PRIMARY) HYPERTENSION Status: Chronic Qualifiers: Hypertension type: essential hypertension Qualified Code(s): I10 - Essential (primary) hypertension (4) Hyponatremia Code(s): E87.1 - HYPO-OSMOLALITY AND HYPONATREMIA Status: Chronic (5) Recurrent right pleural effusion Code(s): J90 - PLEURAL EFFUSION, NOT ELSEWHERE CLASSIFIED Status: Chronic - Plan Patient is a 69 years old female who has significant past medical history of liver cirrhosis, recurrent pleural effusion with status post multiple thoracocentesis, who presented to the ED with complaint of altered mental status. Patient was admitted for acute hepatic encephalopathy Acute hepatic encephalopathy likely due to noncompliant --Ammonia level was 178 on admission. We will continue with lactulose titrate to make sure patient had a less 3-4 bowel movements a day. Add rifaximin. --Continue with supportive cares Recurrent pleural effusion secondary to liver cirrhosis --Required frequent thoracocentesis. Chest x-ray at this time appeared to be small. We will continue to monitor. No significant respiratory symptoms Hyponatremia, mild sodium of 125 --Appears to be at baseline. Follow BMP. Check TSH level in a.m. CKD stage III --Creatinine stable, avoid nephrotoxic agent. Follow BMP
[2020-07-18] MEDS ORDERED: Enoxaparin Sodium 30 MG/0.3 ML SYRINGE SC SCH (09:00)
[2020-07-18 09:57] LABS: Anion Gap 20 mmol/L (10-20); BUN (Urea Nitrogen) 39 mg/dL (9.8-20.1); Calc. Creatinine Clearance 26 mL/min (70-130); Calcium 9.6 mg/dL (7.8-10.44); Carbon Dioxide 15 mmol/L (23-31); Chloride 99 mmol/L (98-107); Glucose 164 mg/dL (80-115); Potassium 3.7 mmol/L (3.5-5.1); Sodium 130 mmol/L (136-145)
[2020-07-18] MEDS: Rifaximin 550 MG TAB PO SCH ×2 (11:53→20:42)
[2020-07-18] MEDS ORDERED: Ondansetron PF 4 MG/2 ML Vial IVP PRN (12:31)
--- NOTE | 2020-07-18 13:48 | CON ---
DATE OF CONSULTATION: 07/18/2020 HISTORY OF PRESENT ILLNESS: The patient is a 69-year-old female, who was in her normal state of health until 2 days prior to admission when she became progressively more confused. According to family members, she would just answer okay to all questions, was not able to walk. She is on lactulose, but has not been taking it lately, maybe once every few days. Her daughter reports it makes her sensitive stomach. She is somewhat improved since being hospitalized, she has had one bowel movement today, she seems to be able to answer questions more appropriately. She is scheduled for a TIPS procedure to control hepatic hydrothorax and this is scheduled at [facility] on Tuesday. She has had no fever or chills. No other abnormalities. The patient was diagnosed with COVID . PAST MEDICAL HISTORY: Includes cirrhosis and hepatic hydrothorax. PAST SURGICAL HISTORY: Includes thoracenteses, hysterectomy, cholecystectomy, bilateral tubal ligation. SOCIAL HISTORY: She lives with her daughter, Torrey. HOME MEDICATIONS: 1. Spironolactone 100 mg p.o. daily. 2. Omeprazole 40 mg p.o. daily. 3. Metoprolol 25 mg p.o. daily. 4. Lactulose 20 g p.o. t.i.d. 5. Furosemide 120 mg p.o. daily. ALLERGIES: NO KNOWN ALLERGIES. REVIEW OF SYSTEMS: Noncontributory. PHYSICAL EXAMINATION: GENERAL: Shows a somnolent female, in no acute distress. VITAL SIGNS: Temperature 97.2, pulse 83, respiratory rate 17, blood pressure 108/58. CHEST: Clear. CARDIOVASCULAR: Regular rate and rhythm. ABDOMEN: Soft, nontender, slight protuberance. There is a paraumbilical hernia that is soft and reducible. EXTREMITIES: Normal. NEUROLOGIC: Nonfocal. LABORATORY DATA: Show a CBC with white count of 7.2, hemoglobin 13.1, hematocrit of 40.7, platelet count of 102,000. Sodium is 130, CO2 of 15, BUN 39, creatinine 1.99, glucose 164. COVID is positive laboratory shows sodium 125, CO2 of 20, BUN 38, creatinine 1.76, total bilirubin is 1.5, AST of 36, alkaline phosphatase 146, albumin of 2.8. Today's creatinine is 1.99. Ammonia on admission was 178, repeat today is 112. ASSESSMENT: 1. Hepatic encephalopathy-most likely secondary to noncompliance. 2. Cirrhosis. 3. Hepatic hydrothorax, scheduled to undergo TIPS on Tuesday. 4. Renal insufficiency. Brain CT showed no acute intracranial abnormalities. Chest x-ray showed small right pleural effusion. Job ID: [id number]
[2020-07-18 14:14] LABS: SARS-CoV-2 PCR by NAA Not Detected (NotDetected)
[2020-07-18] MEDS: SODIUM BICARBONATE IV SCH (14:41)
[2020-07-18] MEDS: DEXTROSE IV SCH (14:41)
[2020-07-18] MEDS: NACL IV SCH (14:41)
[2020-07-19 04:57] LABS: #Lymphocytes 0.8 thou/uL (1.20-3.40); #Monocytes 0.6 thou/uL (0.11-0.59); #Neutrophils 4.3 thou/uL (1.40-6.50); %Basophils 0.1 % (0.0-1.0); %Eosinophils 0.1 % (0.0-10.0); %Lymphocytes 13.6 % (21.0-51.0); %Monocytes 10.4 % (0.0-10.0); %Neutrophils 75.8 % (42.0-75.0); Hemoglobin 13.4 g/dL (12.0-16.0); Mean Corpuscular HGB CONC 31.8 g/dL (32.0-36.0); Mean Corpuscular Volume 88.2 fL (78.0-98.0); Mean Platelet Volume 7.7 fL (7.4-10.4); Platelet Count 92 thou/uL (130-400); RBC Distribution Width 15.5 % (11.5-14.5); Red Blood Cell (RBC) Count 4.78 mill/uL (4.20-5.40); White Blood Cell (WBC) Count 5.7 thou/uL (4.8-10.8)
[2020-07-19 05:06] LABS: ALT (SGPT) 23 U/L (8-55); AST (SGOT) 38 U/L (5-34); Albumin 2.7 g/dL (3.4-4.8); Alkaline Phosphatase 102 U/L (40-110); Anion Gap 13 mmol/L (10-20); BUN (Urea Nitrogen) 41 mg/dL (9.8-20.1); Bilirubin, Total 1.9 mg/dL (0.2-1.2); Calc. Creatinine Clearance 25 mL/min (70-130); Calcium 9.2 mg/dL (7.8-10.44); Carbon Dioxide 22 mmol/L (23-31); Chloride 108 mmol/L (98-107); Globulin 3.8 g/dL (2.4-3.5); Glucose 159 mg/dL (80-115); Magnesium 2.4 mg/dL (1.6-2.6); Potassium 3.2 mmol/L (3.5-5.1); Protein, Total 6.5 g/dL (5.8-8.1); Sodium 140 mmol/L (136-145)
--- NOTE | 2020-07-19 08:46 | PDOC.HOSPP ---
- Subjective Encounter Date: 07/19/20 (f/u encephalopathy) Encounter Time: 08:45 Subjective: Pt was admitted for hepatic encephalopathy that has responded well to lactulose. Pt this morning reports she is feeling better. she is hungry/thirsty. She denies any current abdominal pain or nausea. She denies any new symptoms. Per RN, pt is significantly improved today. - Objective Vital Signs & Weight: Vital Signs (12 hours) Temp Pulse Resp BP Pulse Ox 07/19/20 05:54 97.6 F 73 18 142/77 H 98 07/19/20 00:56 98.3 F 74 18 106/66 98 Weight Weight 132 lb Result Diagrams: 07/19/20 04:35 07/19/20 04:35 Hospitalist ROS - Medication Medications: Active Medications Generic Name Dose Route Start Last Admin Trade Name Freq PRN Reason Stop Dose Admin Sodium Bicarbonate 75 meq/ 1,075 mls @ 50 mls/hr 07/18/20 14:00 07/18/20 14:41 Dextrose/Sodium Chloride IV 1,075 mls .[id number] KAITNA Administration Lactulose 30 gm 07/18/20 17:00 07/19/20 05:42 Lactulose 20 Gm/30 Ml Udcup PO 30 gm Q6H KATINA Administration Rifaximin 550 mg 07/18/20 09:00 07/18/20 20:42 Rifaximin 550 Mg Tab PO 550 mg BID KATINA Administration Hospitalist Exam Vitals: Vital Signs (12 hours) Temp Pulse Resp BP Pulse Ox 07/19/20 05:54 97.6 F 73 18 142/77 H 98 07/19/20 00:56 98.3 F 74 18 106/66 98 Weight Weight 132 lb General Appearance: NAD Heart: RRR, no murmur Respiratory: no wheezes, no rales, no ronchi Gastrointestinal: soft, non-tender, normal bowel sounds Gastrointestinal - other findings: appears slightly distended, non-tender umbilical hernia Musculoskeletal: normal tone Psychiatric: normal affect Hosp A/P (1) Acute hepatic encephalopathy Code(s): K72.00 - ACUTE AND SUBACUTE HEPATIC FAILURE WITHOUT COMA Status: Resolved (2) Hyperammonemia Code(s): E72.20 - DISORDER OF UREA CYCLE METABOLISM, UNSPECIFIED Status: Resolved (3) Hyponatremia Code(s): E87.1 - HYPO-OSMOLALITY AND HYPONATREMIA Status: Resolved (4) Thrombocytopenia Code(s): D69.6 - THROMBOCYTOPENIA, UNSPECIFIED Status: Chronic (5) Hypokalemia Code(s): E87.6 - HYPOKALEMIA Status: Acute (6) Cirrhosis Code(s): K74.60 - UNSPECIFIED CIRRHOSIS OF LIVER Status: Chronic (7) MIKHAIL (acute kidney injury) Code(s): N17.9 - ACUTE KIDNEY FAILURE, UNSPECIFIED Status: Acute - Plan Acute hepatic encephalopathy likely due to noncompliant - now resolved - Ammonia level was 178 on admission. Continue rifaximin and lactulose Recurrent pleural effusion secondary to liver cirrhosis - Required frequent thoracocentesis in the past. Chest x-ray at this time appeared to be small. We will continue to monitor. No significant respiratory symptoms Hyponatremia, - resolved currently NPO and on NS - will continue at this low rate while NPO Hypokalemia - replace potassium CKD with MIKHAIL --Creatinine stable - however elevated compared to baseline - Nephrology consult - check renal ultrasound - hold home meds of furosemide and spironolactone Thrombocytopenia chronic, stable dvt prophy - due to thrombocytopenia - scd's gi prophy - home PPI code status full pt at high risk in current condition. Reviewed plan of care - involve Nephrology with goal of optimizing renal function prior to discharge. no questions or further needs at end of eval. Of note - IVF changed by Dr. Castellano as it was D5NS + bicarb. Monitor renal function.
[2020-07-19] MEDS: Rifaximin 550 MG TAB PO SCH ×2 (08:57→20:40)
[2020-07-19] MEDS ORDERED: Potassium Bicarbonate/Cit Ac 20 MEQ TAB PO SCH (09:00)
[2020-07-19] MEDS ORDERED: Sodium Bicarbonate 75 MEQ in D5 1/2 NS w/20 mEq KCL 1,000 ML IV SCH (12:00)
--- NOTE | 2020-07-19 12:14 | ULT ---
RENAL ULTRASOUND HISTORY: Acute renal injury COMPARISON: None FINDINGS: Right Kidney: Size: 6.9 x 3.9 x 3.9 cm Abnormality: Normal cortical echotexture. No hydronephrosis. Left Kidney: Size: 9.2 x 4.8 x 4.2 cm Abnormality: Normal cortical echotexture. No hydronephrosis Urinary bladder: Normal mucosa. IMPRESSION: No hydronephrosis.
[2020-07-19] MEDS: NACL IV SCH (12:51)
[2020-07-19] MEDS: DEXTROSE IV SCH (12:51)
[2020-07-19] MEDS: SODIUM BICARBONATE IV SCH (12:51)
[2020-07-19] MEDS ORDERED: POTASSIUM CHLORIDE IV SCH (13:00)
[2020-07-19] MEDS ORDERED: [UNRECOGNIZED DRUG - OTHER] IV SCH (13:00)
[2020-07-19] MEDS ORDERED: SODIUM BICARBONATE IV SCH (13:00)
--- NOTE | 2020-07-19 14:50 | PRG ---
DATE OF SERVICE: 07/19/2020 SUBJECTIVE: The patient is much more alert and awake today. She is oriented, eating, drinking. She is having no abdominal pain, nausea, or vomiting. OBJECTIVE: VITAL SIGNS: Temperature 98.0, pulse 85, respiratory rate 20, blood pressure 111/65. CHEST: Clear. CARDIOVASCULAR: Regular rate and rhythm. ABDOMEN: Soft and nontender. She has a periumbilical hernia. EXTREMITIES: Show no edema. LABORATORY DATA: Significant for normal CBC. Chemistries significant for , BUN of 41, creatinine of 2.02, glucose 159. ASSESSMENT: 1. Hepatic encephalopathy-much improved. Source is probably noncompliance; however, diuresis may have contributed. 2. Renal insufficiency-the patient was on diuretics prior to admission. She probably was not eating or drinking prior to admission. stopped. 3. History of hepatic hydrothorax, scheduled to undergo a TIPS procedure on Tuesday. RECOMMENDATIONS: 1. Continue to hold diuretics and may need a lesser dose or no diuretics in the future. 2. Continue lactulose to achieve 3 to 4 bowel movements a day. 3. Follow renal functions. Job ID: [id number]
[2020-07-20 06:50] LABS: #Eosinphils 0.1 thou/uL (0.0-0.7); #Lymphocytes 1.1 thou/uL (1.20-3.40); #Monocytes 0.6 thou/uL (0.11-0.59); #Neutrophils 4.4 thou/uL (1.40-6.50); %Basophils 0.7 % (0.0-1.0); %Eosinophils 1.3 % (0.0-10.0); %Lymphocytes 17.4 % (21.0-51.0); %Monocytes 9.8 % (0.0-10.0); %Neutrophils 70.8 % (42.0-75.0); Hemoglobin 13.3 g/dL (12.0-16.0); Mean Corpuscular HGB CONC 32.9 g/dL (32.0-36.0); Mean Corpuscular Hemoglobin 29.2 pg (27.0-31.0); Mean Corpuscular Volume 88.9 fL (78.0-98.0); Mean Platelet Volume 8.2 fL (7.4-10.4); Platelet Count 71 thou/uL (130-400); RBC Distribution Width 15.4 % (11.5-14.5); Red Blood Cell (RBC) Count 4.54 mill/uL (4.20-5.40); White Blood Cell (WBC) Count 6.1 thou/uL (4.8-10.8)
[2020-07-20 07:13] LABS: Anion Gap 16 mmol/L (10-20); BUN (Urea Nitrogen) 35 mg/dL (9.8-20.1); Calc. Creatinine Clearance 26 mL/min (70-130); Calcium 8.8 mg/dL (7.8-10.44); Carbon Dioxide 21 mmol/L (23-31); Chloride 95 mmol/L (98-107); Glucose 160 mg/dL (80-115); Potassium 3.3 mmol/L (3.5-5.1); Sodium 129 mmol/L (136-145)
[2020-07-20] MEDS: Rifaximin 550 MG TAB PO SCH ×2 (08:51→20:55)
--- NOTE | 2020-07-20 09:57 | CON ---
DATE OF CONSULTATION: CONSULTING PHYSICIAN: Gray Camacho MD REQUESTING PHYSICIAN: Dr. Francisco. REASON FOR CONSULTATION: Acute on chronic kidney disease. IMPRESSION: 1. Acute on chronic kidney disease. This is likely hemodynamically mediated compounded by thoracentesis, cannot completely rule out some degree of hepatorenal syndrome. 2. End-stage liver disease, status post recurrent thoracentesis. HISTORY OF PRESENT ILLNESS: History is that of a 69-year-old female patient end-stage liver disease has required multiple thoracentesis. The patient however experienced a rise in creatinine recent periods of relative low blood pressure consistent with thoracentesis. As a result of the elevation in creatinine decision, decision was taken to involve Renal in the management of this case. The patient was noted to be mildly hypokalemic. PAST MEDICAL HISTORY: Significant for status post thoracentesis. FAMILY HISTORY: Not significantly related to present illness. SOCIAL HISTORY: No alcohol. No tobacco. No illicit drug use. REVIEW OF SYSTEMS: As documented in the body of the history. All other systems were reviewed and found not to be significantly related to present illness. PHYSICAL EXAMINATION: GENERAL: The patient is noted to be in any distress with the following vital signs. VITAL SIGNS: Afebrile, temperature 97.8, pulse 82, respiratory rate 19, blood pressure 107/69. HEENT: Unremarkable. CARDIOVASCULAR SYSTEM: First and second heart sounds were heard. RESPIRATORY SYSTEM: Clear to auscultation anteriorly. DIGESTIVE SYSTEM: Revealed a severely distended abdomen. EXTREMITIES: No significant peripheral edema. SKIN: No new gross rash. LYMPHATICS: No peripheral lymphadenopathy. SUMMARY: A 69-year-old female patient with end-stage liver disease requiring recurrent thoracentesis. . Thank you for this consultation. We will follow with you. Job ID: [id number]
--- NOTE | 2020-07-20 10:24 | PRG ---
DATE OF SERVICE: 07/20/2020 SUBJECTIVE: The patient is feeling well. She is awake and alert. I did ask her for the number of bowel movements she had yesterday and she said one, but this was corrected by her daughter who said she had more than three. She has had no nausea or vomiting. She is eating well. OBJECTIVE: VITAL SIGNS: Temperature is 97.2, pulse 82, respiratory rate 18, and blood pressure 121/77. CHEST: Clear. CARDIOVASCULAR: Regular rate and rhythm. ABDOMEN: Soft, slightly protuberant with a paraumbilical hernia that is easy reducible. EXTREMITIES: Show no edema. LABORATORY DATA: Shows sodium 129, potassium 3.3, chloride 95, CO2 of 21, BUN 35, creatinine 1.97, glucose 160. CBC is essentially normal except for platelet count of 71. ASSESSMENT: 1. Hepatic encephalopathy - resolved, probably combination of noncompliance and dehydration. 2. Renal insufficiency - the patient's renal insufficiency is unchanged today. 3. History of hepatic hydrothorax, scheduled for a transjugular intrahepatic portosystemic shunt on Tuesday. RECOMMENDATIONS: 1. Continue lactulose to achieve 3 to 4 bowel movements per day. 2. Continue to hold diuretics and may need less or no diuretics in the future. 3. Hold on any thoracentesis or paracentesis. 4. Follow renal function. 5. We will give albumin, midodrine, and Sandostatin subcu for today and possibly tomorrow to see if we can improve renal function. Job ID: [id number]
[2020-07-20] MEDS ORDERED: Potassium Chloride 20 MEQ TAB PO SCH (10:30)
[2020-07-20] MEDS ORDERED: Artificial Tear Sol 15 ML BOT EA EYE PRN (10:32)
--- NOTE | 2020-07-20 10:34 | PDOC.HOSPP ---
- Subjective Encounter Date: 07/20/20 (f/u MIKHAIL) Encounter Time: 10:32 Subjective: Pt c/o eyes feeling crusted - around lashes and right ear pain. Both new today. She denies pain anywhere else. Daughter reports pt has twice weekly thoracentesis to remove 2-3 liters of fluid from right chest. last performed 1+ weeks ago. - Objective Vital Signs & Weight: Vital Signs (12 hours) Temp Pulse Resp BP Pulse Ox 07/20/20 07:00 97.2 F L 82 18 121/77 94 L 07/20/20 05:30 97.2 F L 82 18 118/73 93 L 07/20/20 01:15 97.7 F 90 20 137/83 100 Weight Weight 132 lb I&O: 07/19/20 07/20/20 07/21/20 06:59 06:59 06:59 Intake Total 1140 Balance 1140 Result Diagrams: 07/20/20 06:01 07/20/20 06:01 Hospitalist ROS - Medication Medications: Active Medications Generic Name Dose Route Start Last Admin Trade Name Alvinq PRN Reason Stop Dose Admin Sodium Bicarbonate 75 meq/ 1,085 mls @ 75 mls/hr 07/19/20 13:00 07/19/20 15:52 Potassium Chloride 20 meq/ IV 1,085 mls Dextrose/Sodium Chloride INF KATINA Administration Lactulose 30 gm 07/18/20 17:00 07/20/20 05:07 Lactulose 20 Gm/30 Ml Udcup PO 30 gm Q6H KATINA Administration Pantoprazole Sodium 40 mg 07/19/20 09:00 07/20/20 08:51 Pantoprazole 40 Mg Tab PO 40 mg DAILY KATINA Administration Rifaximin 550 mg 07/18/20 09:00 07/20/20 08:51 Rifaximin 550 Mg Tab PO 550 mg BID KATINA Administration Hospitalist Exam Vitals: Vital Signs (12 hours) Temp Pulse Resp BP Pulse Ox 07/20/20 07:00 97.2 F L 82 18 121/77 94 L 07/20/20 05:30 97.2 F L 82 18 118/73 93 L 07/20/20 01:15 97.7 F 90 20 137/83 100 Weight Weight 132 lb General Appearance: NAD Heart: RRR, no murmur Respiratory: no wheezes, no rales, no ronchi Respiratory - other findings: absent breath sounds right base to mid lung field Gastrointestinal: soft, non-tender, normal bowel sounds Extremities: no cyanosis, no clubbing, no edema Psychiatric: normal affect Hosp A/P (1) Acute hepatic encephalopathy Code(s): K72.00 - ACUTE AND SUBACUTE HEPATIC FAILURE WITHOUT COMA Status: Resolved (2) Hyperammonemia Code(s): E72.20 - DISORDER OF UREA CYCLE METABOLISM, UNSPECIFIED Status: Resolved (3) Hyponatremia Code(s): E87.1 - HYPO-OSMOLALITY AND HYPONATREMIA Status: Resolved (4) Thrombocytopenia Code(s): D69.6 - THROMBOCYTOPENIA, UNSPECIFIED Status: Chronic (5) Hypokalemia Code(s): E87.6 - HYPOKALEMIA Status: Acute (6) Cirrhosis Code(s): K74.60 - UNSPECIFIED CIRRHOSIS OF LIVER Status: Chronic (7) MIKHAIL (acute kidney injury) Code(s): N17.9 - ACUTE KIDNEY FAILURE, UNSPECIFIED Status: Acute - Plan Acute hepatic encephalopathy likely due to noncompliant - now resolved - Ammonia level was 178 on admission. - Continue rifaximin and lactulose Recurrent pleural effusion secondary to liver cirrhosis - Required frequent thoracocentesis in the past. - Given change in exam and pt has been on IVF, will repeat CXR. If enough fluid present, will request US guided thoracentesis tomorrow. Hyponatremia, - likely chronic - currently 129 with IVF Hypokalemia - replace potassium - will order an additional dose of potassium today CKD with MIKHAIL --Creatinine stable - however elevated compared to baseline - Nephrology consult appreciated - renal ultrasound normal - hold home meds of furosemide and spironolactone Thrombocytopenia chronic, stable Eyes - artificial tears prn Ear pain - willl look for otoscope to evaluate further. dvt prophy - due to thrombocytopenia - scd's gi prophy - home PPI code status full pt at high risk in current condition. Reviewed plan of care with patient/d bill, no questions or further needs at end of eval. Addendum- right ear evaluation - tm appears normal, canal clear. No signs of infection. Source of ear pain likely either nasal congestion or oral/tooth process.
[2020-07-20] MEDS ORDERED: Albumin 25% 25 GM/100 ML BOT IVPB SCH (10:45)
--- NOTE | 2020-07-20 11:28 | RAD ---
XR Chest Pa Lat STANDARD HISTORY: Recent hydrothorax. Decreased breath sounds on the right side COMPARISON: 07/17/2020 FINDINGS: The heart size is normal. The aorta is tortuous. There is been interval increase in the siz e of the right pleural effusion. A right moderate-sized pleural effusion is seen. No pneumothoraces are identified. The left lung is clear. IMPRESSION: Interval increase in size of the right pleural effusion since 07/17/2019
[2020-07-20] MEDS: Octreotide Acetate 100 MCG/ML VIAL SC SCH ×2 (14:43→23:03)
[2020-07-20] MEDS: Midodrine HCl 5 MG TAB PO SCH ×2 (14:43→20:54)
--- NOTE | 2020-07-20 18:26 | PRG ---
DATE OF SERVICE: 07/20/2020 SUBJECTIVE: Patient noted with the following vital signs. OBJECTIVE: VITAL SIGNS: Afebrile, temperature 97.8, pulse 88, respiratory rate of 18, O2 saturations of 98%, blood pressure 102/71. HEENT: Unremarkable. CARDIOVASCULAR: First and second heart sounds heard. RESPIRATORY: Clear to auscultation anteriorly. DIGESTIVE: Benign abdomen. Positive bowel sounds. EXTREMITIES: No significant peripheral edema. LABORATORY INVESTIGATION: Creatinine down to 1.97, potassium 3.3, sodium 139. IMPRESSION: 1. Acute on chronic kidney disease which seems to be improving. 2. Hyponatremia. 3. Mild hypokalemia. PLAN: 1. Continue current renal supportive measures. 2. We will likely discontinue bicarb supplementation sodium closely. 3. Further management level closely. Job ID: [id number]
[2020-07-21] MEDS: Octreotide Acetate 100 MCG/ML VIAL SC SCH ×3 (06:23→21:02)
[2020-07-21 08:38] LABS: #Eosinphils 0.1 thou/uL (0.0-0.7); #Monocytes 0.5 thou/uL (0.11-0.59); #Neutrophils 2.9 thou/uL (1.40-6.50); %Basophils 0.4 % (0.0-1.0); %Eosinophils 1.9 % (0.0-10.0); %Lymphocytes 22.3 % (21.0-51.0); %Monocytes 11.8 % (0.0-10.0); %Neutrophils 63.7 % (42.0-75.0); Hemoglobin 11.7 g/dL (12.0-16.0); Mean Corpuscular HGB CONC 33.1 g/dL (32.0-36.0); Mean Corpuscular Hemoglobin 29.6 pg (27.0-31.0); Mean Corpuscular Volume 89.5 fL (78.0-98.0); Mean Platelet Volume 8.5 fL (7.4-10.4); Platelet Count 60 thou/uL (130-400); RBC Distribution Width 15.5 % (11.5-14.5); Red Blood Cell (RBC) Count 3.96 mill/uL (4.20-5.40); White Blood Cell (WBC) Count 4.5 thou/uL (4.8-10.8)
[2020-07-21 08:52] LABS: Anion Gap 13 mmol/L (10-20); BUN (Urea Nitrogen) 35 mg/dL (9.8-20.1); Calc. Creatinine Clearance 28 mL/min (70-130); Calcium 9.3 mg/dL (7.8-10.44); Carbon Dioxide 21 mmol/L (23-31); Chloride 98 mmol/L (98-107); Glucose 110 mg/dL (80-115); Potassium 4.2 mmol/L (3.5-5.1); Sodium 128 mmol/L (136-145)
--- NOTE | 2020-07-21 08:55 | PDOC.HOSPP ---
- Subjective Encounter Date: 07/21/20 Encounter Time: 08:53 Subjective: alert, appropriate - Objective Vital Signs & Weight: Vital Signs (12 hours) Temp Pulse Resp BP Pulse Ox 07/21/20 07:10 98.1 F 76 18 105/66 93 L 07/21/20 04:32 98.3 F 81 17 116/68 93 L Weight Weight 132 lb I&O: 07/20/20 07/21/20 07/22/20 06:59 06:59 06:59 Intake Total 1140 980 Balance 1140 980 Result Diagrams: 07/21/20 07:42 07/21/20 07:42 Hospitalist ROS - Medication Medications: Active Medications Generic Name Dose Route Start Last Admin Trade Name Freq PRN Reason Stop Dose Admin Lactulose 30 gm 07/18/20 17:00 07/21/20 06:22 Lactulose 20 Gm/30 Ml Udcup PO 30 gm Q6H KATINA Administration Midodrine 7.5 mg 07/20/20 15:00 07/20/20 20:54 Midodrine Hcl 5 Mg Tab PO 7.5 mg TID KATINA Administration Octreotide Acetate 100 mcg 07/20/20 14:00 07/21/20 06:23 Octreotide Acetate 100 Mcg/Ml Vial SC 100 mcg Q8HR KATINA Administration Pantoprazole Sodium 40 mg 07/19/20 09:00 07/20/20 08:51 Pantoprazole 40 Mg Tab PO 40 mg DAILY KATINA Administration Rifaximin 550 mg 07/18/20 09:00 07/20/20 20:55 Rifaximin 550 Mg Tab PO 550 mg BID KATINA Administration Hospitalist Exam Vitals: Vital Signs (12 hours) Temp Pulse Resp BP Pulse Ox 07/21/20 07:10 98.1 F 76 18 105/66 93 L 07/21/20 04:32 98.3 F 81 17 116/68 93 L Weight Weight 132 lb General Appearance: awake alert Neck: no JVD Heart: RRR, no murmur Respiratory - other findings: dull with decreased BS R lower lung field Gastrointestinal: soft, non-distended, normal bowel sounds Extremities: 1+ LE edema Hosp A/P (1) Acute hepatic encephalopathy Code(s): K72.00 - ACUTE AND SUBACUTE HEPATIC FAILURE WITHOUT COMA Status: Resolved (2) Acute renal failure superimposed on stage 3 chronic kidney disease Code(s): N17.9 - ACUTE KIDNEY FAILURE, UNSPECIFIED; N18.30 - CHRONIC KIDNEY DISEASE, STAGE 3 UNSPECIFIED Status: Acute Qualifiers: Chronic kidney disease stage 3 subtype: unspecified whether 3a or 3b (3) Cirrhosis Code(s): K74.60 - UNSPECIFIED CIRRHOSIS OF LIVER Status: Chronic Qualifiers: Ascites presence: unspecified (4) Hypertension Code(s): I10 - ESSENTIAL (PRIMARY) HYPERTENSION Status: Chronic Qualifiers: Hypertension type: essential hypertension Qualified Code(s): I10 - Essential (primary) hypertension (5) Pleural effusion Code(s): J90 - PLEURAL EFFUSION, NOT ELSEWHERE CLASSIFIED Status: Chronic - Plan encephalopathy resolved with lactulose recurrent R pleural effusion , discuss with GI
[2020-07-21] MEDS ORDERED: Sodium Bicarbonate 2.5 MEQ/5 ML VIAL ONE (08:57)
[2020-07-21] MEDS ORDERED: Lidocaine 1% PF 5 ML VIAL ONE (08:58)
--- NOTE | 2020-07-21 09:32 | PRG ---
DATE OF SERVICE: 07/21/2020 SUBJECTIVE: Ms. Baird is feeling okay. Shortness of breath is mild. She is set for thoracentesis later today. Renal function appears stable. She has no complaints of abdominal pain or nausea. She feels mentally clear and is able to converse appropriately. OBJECTIVE: VITAL SIGNS: Temperature 98.1, pulse 76, blood pressure 105/66, and 93% oxygen saturation on room air. GENERAL: No acute distress. Reclining in bed comfortably. HEART: Regular rate and rhythm. LUNGS: Decreased breath sounds on the right. No respiratory distress. No wheezing. ABDOMEN: Nondistended. Bowel sounds present. Soft, nontender. EXTREMITIES: No peripheral edema. LABORATORY STUDIES: WBC 4.5, hemoglobin 11.7, platelets 60. INR 1.1. Sodium 128, potassium 4.2, BUN 35, creatinine down to 1.83, glucose 110. ASSESSMENT AND PLAN: 1. Hepatic encephalopathy, appears to be resolving. She is getting lactulose and rifaximin here. She reports poor compliance with lactulose as an outpatient. Recommend continuing both lactulose and rifaximin after discharge. 2. Recurrent hepatic hydrothorax. The patient reports she sees Dr. Sena in the outpatient setting. To my understanding, she was actually scheduled to go down to [place] for TIPS procedure tomorrow. There is some increased risk of worsening encephalopathy with the TIPS, so this may need to be reconsidered, difficult scenario. 3. Acute renal insufficiency. Creatinine is stable, a bit better today. Continue with low-sodium diet. Nephrology is following. Please call anytime with questions or concerns. Job ID: [id number]
[2020-07-21] MEDS: Midodrine HCl 5 MG TAB PO SCH ×3 (11:00→21:01)
[2020-07-21] MEDS: Rifaximin 550 MG TAB PO SCH ×2 (11:01→21:01)
--- NOTE | 2020-07-21 11:29 | RAD ---
Exam: Upright inspiratory and expiratory chest radiograph Comparison to 01/30/2021 at 10:12 AM FINDINGS: Small right-sided pleural effusion does remain. No pneumothorax IMPRESSION: No pneumothorax.
--- NOTE | 2020-07-21 11:31 | RAD ---
Exam: Upright inspiratory and expiratory chest radiograph COMPARISON: 07/16/2020 HISTORY: Status post thoracentesis. Evaluate for pneumothorax FINDINGS: Small right-sided effusion. No pneumothorax IMPRESSION: No pneumothorax
--- NOTE | 2020-07-21 11:43 | ULT ---
Exam: Ultrasound thoracentesis HISTORY: Recurrent right effusion COMPARISON: 07/16/2020 FINDINGS: Successful right-sided thoracentesis. A total of 2.8 L of yellow color pleural fluid was as pirated. TECHNIQUE: Consent obtained to perform a ultrasound-guided thoracentesis. The posterior right hemitho rax was prepped and draped in a sterile fashion. 1% lidocaine, buffered with sodium bicarbonate was used for local anesthesia. Under ultrasound guidance, 22-gauge spinal needle was advanced into the pl eural space. Total of 2.8 L of yellow color pleural fluid was collected. Administration tolerated the procedure well. No immediate or postprocedure complications IMPRESSION: 1. Successful right sided thoracentesis with ultrasound guidance
--- NOTE | 2020-07-21 19:31 | PRG ---
DATE OF SERVICE: 07/21/2020 SUBJECTIVE: The patient noted with the following vital signs. OBJECTIVE: VITAL SIGNS: Afebrile, temperature 98.4, pulse 76, respiratory rate 16, O2 saturation 100%, blood pressure 115/72. HEENT: Unremarkable. CARDIOVASCULAR: First and second sounds were heard. RESPIRATORY: Vented sounds. DIGESTIVE: EXTREMITIES: Mild peripheral edema. SKIN: No new gross rash. LABORATORY INVESTIGATION: Hemoglobin 11.7. Chemistry showed creatinine 1.83, sodium 128. IMPRESSION: 1. Acute on chronic kidney disease, improving. 2. Hyponatremia. PLAN: Continue current renal supportive measures. Monitor the electrolytes closely. resolved. Further management to be dependent on the clinical course. Job ID: [id number]
[2020-07-22] MEDS: Octreotide Acetate 100 MCG/ML VIAL SC SCH (05:45)
[2020-07-22] MEDS ORDERED: Octreotide Acetate 50 MCG/ML AMP SC SCH (06:00)
--- NOTE | 2020-07-22 08:46 | DIS ---
DATE OF ADMISSION: 07/18/2020 DATE OF DISCHARGE: 07/22/2020 PRIMARY CARE PROVIDER: Jessica Sena MD FINAL DIAGNOSES: 1. Acute hepatic encephalopathy. 2. Recurrent right pleural effusion. 3. Hyponatremia. 4. Cirrhosis of the liver. 5. Chronic kidney disease 4 secondary to hepatorenal syndrome. 6. Noncompliance. DISCHARGE MEDICATIONS: 1. Omeprazole 40 mg a day. 2. Metoprolol 25 mg a day. 3. Lactulose 20 g t.i.d. 4. Spironolactone 100 mg a day. 5. Lasix 120 mg a day. ALLERGIES: NO KNOWN DRUG ALLERGIES. CODE STATUS: Full. DIET: Low-salt diet. PENDING AT THE TIME OF DISCHARGE: Nothing. HOSPITAL COURSE: The patient readmitted to the hospital through [facility] to the Hospitalist Service with altered mental status. It is pertinent to note that the patient has chronic cirrhosis, is supposed to be on lactulose, is noncompliant with said medication. Her initial ammonia was 178. After starting her medicines in a 36-hour period of time, it dropped down to 39 and her lucidity returned. On chest x-ray, she had a recurrent right pleural effusion, she had a hydrothorax from her cirrhosis, and apparently has been getting twice a week thoracentesis to relieve that. PERTINENT LABORATORY DATA: On admission, otherwise, CBC was unremarkable. INR was 1.1. Sodium 125, potassium 4.5, BUN 38, creatinine 1.76, total bilirubin 1.5, AST 36, ALT 21. She was happily negative for COVID. CONSULTATIONS: She was seen in consultation by Dr. Jose Sepulveda in replace of Dr. Samantha Sena, her usual news assistant, and Dr. Gray Camacho, Nephrology. During her hospital stay, her lucidity returned quickly with resumption of her normal medicines. On 07/21/2020, she had a thoracentesis, paracentesis with removal of fluid by Radiology. She is currently alert, appropriate. I have reaffirmed the absolute necessity for taking her lactulose with her. She is being discharged with the addition of Xifaxan to above medications. Follow up with her primary care doctor in 3 to 7 days. Job ID: [id number]
[2020-07-22] MEDS: Rifaximin 550 MG TAB PO SCH (09:03)
[2020-07-22] MEDS: Midodrine HCl 5 MG TAB PO SCH (09:03)
[2020-07-22 12:58] VITALS: BP 111/65; TEMP 97.9
== END 2020-07-22 14:41 | disposition home or self-care (01) | DRG 441 ==
LOC: ERS 23:18 → T4-A 07-18 01:47
PROVIDERS: ADMIT Student in an Organized Health Care Education/Training Program; ATTEND Internal Medicine
PROC: 0W993ZZ Drainage of Right Pleural Cavity, Percutaneous Approach (ICD-10-PCS; principal; 2020-07-21)
DX: K72.00 Acute and subacute hepatic failure without coma (principal); K76.7 Hepatorenal syndrome; J90 Pleural effusion, not elsewhere classified; E87.1 Hypo-osmolality and hyponatremia; N18.4 Chronic kidney disease, stage 4 (severe); N17.9 Acute kidney failure, unspecified; D69.6 Thrombocytopenia, unspecified; I12.9 Hypertensive chronic kidney disease with stage 1 through stage 4 chronic kidney disease, or unspecified chronic kidney disease; Z20.822 Contact with and (suspected) exposure to COVID-19; K74.60 Unspecified cirrhosis of liver; E87.6 Hypokalemia; Z91.19 Patient's noncompliance with other medical treatment and regimen; Z90.710 Acquired absence of both cervix and uterus
CPT/HCPCS: 36415; 70450; 71045; 71046; 76770; 76942; 80048; 80053; 80306; 81001; 82140; 83735; 84443; 84484; 85025; 85610; 85730; 87040; 87086; 87635; 93005; 94760; J1650; J2354; J3480; J7042; P9047; U0003; U0005

== ENCOUNTER 2020-09-18 14:18 | Inpatient (IN) | payer MEDICARE, OTHER ==
[~2020-09-18 14:18] MED LIST: Iopamidol-370 76% 500 ML 1 ML ONE
[2020-09-18] MEDS ORDERED: Morphine 4 MG/ML VIAL ONE (16:12)
[2020-09-18 16:20] LABS: Hemoglobin 13.7 g/dL (12.0-16.0); Mean Corpuscular HGB CONC 33.2 g/dL (32.0-36.0); Mean Corpuscular Hemoglobin 33.1 pg (27.0-31.0); Mean Corpuscular Volume 99.6 fL (78.0-98.0); Mean Platelet Volume 7.9 fL (7.4-10.4); Platelet Count 93 thou/uL (130-400); RBC Distribution Width 17.4 % (11.5-14.5); Red Blood Cell (RBC) Count 4.14 mill/uL (4.20-5.40); White Blood Cell (WBC) Count 10.2 thou/uL (4.8-10.8)
[2020-09-18] MEDS ORDERED: Ondansetron PF 4 MG/2 ML Vial ONE (16:25)
[2020-09-18 16:26] LABS: INR-International Normal Ratio 1.4; Prothrombin Time 17.3 sec (12.0-14.7)
[2020-09-18 16:27] LABS: PTT 34.7 sec (22.9-36.1)
[2020-09-18 16:35] LABS: D-Dimer Test 5.57 *mcg/mL (0.27-0.43)
[2020-09-18 16:40] LABS: Band 19 % (5-11); Lymphocytes 7 % (21-51); MDiff Complete? YES; Monocytes 5 % (0-10); Neutrophil 68 % (42-75); Platelet Morphology Comment Appears Decreased; RBC Morphology Normal; Reactive Lymphocytes 1 % (0-10)
[2020-09-18 16:45] LABS: ALT (SGPT) 42 U/L (8-55); AST (SGOT) 90 U/L (5-34); Albumin 2.6 g/dL (3.4-4.8); Alkaline Phosphatase 227 U/L (40-110); Anion Gap 24 mmol/L (10-20); BUN (Urea Nitrogen) 22 mg/dL (9.8-20.1); Bilirubin, Total 5.7 mg/dL (0.2-1.2); Calc. Creatinine Clearance 0 mL/min (70-130); Carbon Dioxide 13 mmol/L (23-31); Chloride 95 mmol/L (98-107); Globulin 3.8 g/dL (2.4-3.5); Glucose 175 mg/dL (80-115); Lipase 8 U/L (8-78); Potassium 5.5 mmol/L (3.5-5.1); Protein, Total 6.4 g/dL (5.8-8.1); Sodium 126 mmol/L (136-145)
[2020-09-18 16:52] LABS: Bacteria/HPF 2+ HPF (None Seen)
[2020-09-18 16:53] LABS: Bilirubin 1+ (Negative); Blood, Urine 1+ (Negative); Clarity Extra Turbid (Clear); Glucose, Urine (Dipstick) Normal (Negative); Ketone, Urine Negative (Negative); Leukocyte 75 Leu/uL (Negative); Nitrite Negative (Negative); Protein, Urine (Dipstick) 30 mg/dL (Neg-Trace); Specific Gravity, Urine 1.021 (1.002-1.036)
[2020-09-18 17:03] LABS: CKMB 1.9 ng/mL (0-6.6)
[2020-09-18] MEDS ORDERED: Ondansetron PF 4 MG/2 ML Vial IVP SCH (17:30)
[2020-09-18] MEDS ORDERED: Sodium Chloride 0.9% 1,000 ML IV SCH (17:33)
[2020-09-18] MEDS ORDERED: Cefepime 2 GM VIAL ONE (17:38)
[2020-09-18] MEDS ORDERED: Magnesium 2 GM/50 ML BAG (IN WATER) ONE (17:38)
[2020-09-18] MEDS ORDERED: Vancomycin 1 GM/200 ML BAG ONE (18:42)
[2020-09-18 19:15] LABS: Actual Bicarbonate (HCO3a) 14.7 mEq/L (22-28); Analyzer IN Cardio ER; Base Excess (BEa) -7.7 mEq/L (-2.0 to +3.0); Calcium, Ionized (arterial) 1.11 mmol/L (1.12-1.30); Carboxyhemoglobin (COHb) 0.9 gm% (0.0-3.0); Hemoglobin (Hb) 12.9 g/dL (12.0-16.0); O2 Tension (PaO2), arterial 77.9 mmHg (> 80.0); Potassium - ABG Lab 4.28 mmol/L (3.70-5.30); pH, Arterial 7.42 (7.35-7.45)
[2020-09-18 19:16] LABS: Puncture Site RRA
[2020-09-18 19:58] LABS: Troponin I 0.051 ng/mL (< 0.028)
[2020-09-18] MEDS ORDERED: SODIUM BICARBONATE IV SCH (20:00)
[2020-09-18] MEDS ORDERED: ADMIXTURE FEE IV SCH (20:00)
[2020-09-18] MEDS ORDERED: Acetaminophen 325 MG TAB PO PRN (21:00)
[2020-09-18] MEDS ORDERED: Ondansetron PF 4 MG/2 ML Vial IVP PRN (21:00)
[2020-09-18] MEDS ORDERED: Calcium Gluc 4.6 MEQ/10 ML (100 MG/ML) SLOW IVP SCH (21:08)
[2020-09-18] MEDS ORDERED: Dextrose 50% Abboject 50 ML SYRINGE SLOW IVP PRN (21:08)
[2020-09-18] MEDS ORDERED: Insulin Regular 300 UNITS/3 ML VIAL IVP SCH (21:15)
[2020-09-18 21:22] LABS: Lactic Acid 5.4 mmol/L (0.5-2.2)
[2020-09-18 22:43] LABS: Troponin I 0.046 ng/mL (< 0.028)
[2020-09-18] MEDS ORDERED: Dextrose 50% Abboject 50 ML SYRINGE ONE (23:16)
[2020-09-18] MEDS ORDERED: Insulin Regular 300 UNITS/3 ML VIAL ONE (23:16)
[2020-09-18] MEDS ORDERED: Calcium Gluc 4.6 MEQ/10 ML (100 MG/ML) ONE (23:16)
[2020-09-19] MEDS ORDERED: Ondansetron PF 4 MG/2 ML Vial ONE (00:10)
[2020-09-19] MEDS ORDERED: Mineral Oil ENEMA PR SCH (00:15)
[2020-09-19 00:54] LABS: SARS-CoV-2 NAA Rapid Test Not Detected (NotDetected)
[2020-09-19] MEDS: Rifaximin 550 MG TAB PO SCH ×3 (01:00→20:28)
[2020-09-19 07:15] LABS: Anion Gap 12 mmol/L (10-20); BUN (Urea Nitrogen) 24 mg/dL (9.8-20.1); Calc. Creatinine Clearance 0 mL/min (70-130); Calcium 8.6 mg/dL (7.8-10.44); Carbon Dioxide 24 mmol/L (23-31); Chloride 98 mmol/L (98-107); Glucose 106 mg/dL (80-115); Potassium 3.7 mmol/L (3.5-5.1); Sodium 130 mmol/L (136-145)
[2020-09-19 07:23] LABS: #Eosinphils 0.1 thou/uL (0.0-0.7); #Lymphocytes 0.8 thou/uL (1.20-3.40); #Monocytes 0.9 thou/uL (0.11-0.59); #Neutrophils 4.3 thou/uL (1.40-6.50); %Basophils 0.1 % (0.0-1.0); %Lymphocytes 13.2 % (21.0-51.0); %Monocytes 14.7 % (0.0-10.0); %Neutrophils 70.9 % (42.0-75.0); Hemoglobin 10.5 g/dL (12.0-16.0); Mean Corpuscular HGB CONC 33.2 g/dL (32.0-36.0); Mean Corpuscular Hemoglobin 32.9 pg (27.0-31.0); Mean Corpuscular Volume 99.1 fL (78.0-98.0); Mean Platelet Volume 8.3 fL (7.4-10.4); Platelet Count 58 thou/uL (130-400); Red Blood Cell (RBC) Count 3.19 mill/uL (4.20-5.40); White Blood Cell (WBC) Count 6.1 thou/uL (4.8-10.8)
[2020-09-19] MEDS: Furosemide 20 MG TAB PO SCH ×2 (09:09→16:18)
[2020-09-19] MEDS ORDERED: hydrALAZINE 20 MG/ML VIAL SLOW IVP PRN (10:06)
[2020-09-19] MEDS ORDERED: Sodium Chloride 0.65% Nasal 44 ML BOT EA NARE PRN (10:06)
[2020-09-19] MEDS ORDERED: Cepastat Lozenges 1 LOZ PO PRN (10:06)
[2020-09-19] MEDS ORDERED: Senokot S 8.6-50 MG TAB PO PRN (10:06)
[2020-09-19] MEDS ORDERED: GUAIFENESIN SF SOLN 200 MG/10 ML UDCUP PO PRN (10:06)
[2020-09-19] MEDS ORDERED: Ondansetron PF 4 MG/2 ML Vial IVP PRN (10:06)
[2020-09-19] MEDS ORDERED: Loratadine 10 MG TAB PO PRN (10:06)
[2020-09-19] MEDS ORDERED: Calcium Carbonate 500 MG ChewTAB PO PRN (10:06)
[2020-09-19] MEDS ORDERED: Bisacodyl 10 MG SUPP PR PRN (10:06)
[2020-09-19 15:45] VITALS: BMI 24.6
[2020-09-19] MEDS ORDERED: Morphine 4 MG/ML VIAL SLOW IVP SCH (15:58)
[2020-09-19] MEDS ORDERED: Sodium Chloride 0.9% 500 ML IVPB SCH (15:58)
[2020-09-19] MEDS ORDERED: Magnesium 2 GM/50 ML 2 GM in Premix Bag 1 BAG IVPB SCH (17:30)
[2020-09-19] MEDS ORDERED: Cefepime 2 GM in Sodium Chloride 0.9% 100 ML IVPB SCH (17:30)
[2020-09-19] MEDS ORDERED: Vancomycin 1 GM in Premix Bag 1 BAG IVPB SCH (17:33)
[2020-09-19] MEDS ORDERED: VANCOMYCIN 1.25 GM/250 ML BAG 1.25 GM in Premix Bag 1 BAG IVPB SCH (19:00)
[2020-09-19] MEDS: Sodium Bicarbonate Tab 325 MG TAB PO SCH (20:29)
[2020-09-20 04:02] LABS: #Lymphocytes 0.9 thou/uL (1.20-3.40); #Monocytes 0.8 thou/uL (0.11-0.59); %Basophils 0.3 % (0.0-1.0); %Eosinophils 0.8 % (0.0-10.0); %Lymphocytes 15.4 % (21.0-51.0); %Monocytes 14.3 % (0.0-10.0); %Neutrophils 69.2 % (42.0-75.0); Hemoglobin 10.5 g/dL (12.0-16.0); Mean Corpuscular HGB CONC 33.2 g/dL (32.0-36.0); Mean Corpuscular Hemoglobin 32.9 pg (27.0-31.0); Mean Corpuscular Volume 98.9 fL (78.0-98.0); Mean Platelet Volume 8.2 fL (7.4-10.4); Platelet Count 57 thou/uL (130-400); RBC Distribution Width 16.9 % (11.5-14.5); White Blood Cell (WBC) Count 5.8 thou/uL (4.8-10.8)
[2020-09-20 04:13] LABS: Lactic Acid 1.7 mmol/L (0.5-2.2)
[2020-09-20 04:27] LABS: ALT (SGPT) 26 U/L (8-55); AST (SGOT) 38 U/L (5-34); Albumin 2.4 g/dL (3.4-4.8); Alkaline Phosphatase 153 U/L (40-110); Anion Gap 13 mmol/L (10-20); BUN (Urea Nitrogen) 19 mg/dL (9.8-20.1); Calc. Creatinine Clearance 56 mL/min (70-130); Calcium 8.2 mg/dL (7.8-10.44); Carbon Dioxide 22 mmol/L (23-31); Chloride 98 mmol/L (98-107); Globulin 2.6 g/dL (2.4-3.5); Glucose 108 mg/dL (80-115); Potassium 3.3 mmol/L (3.5-5.1); Sodium 130 mmol/L (136-145)
[2020-09-20] MEDS: Cefepime 1 GM in Sodium Chloride 0.9% 100 ML IVPB SCH ×2 (08:23→20:11)
[2020-09-20] MEDS: Rifaximin 550 MG TAB PO SCH ×2 (08:23→20:11)
[2020-09-20] MEDS: Furosemide 20 MG TAB PO SCH ×2 (08:23→14:35)
[2020-09-20] MEDS: Sodium Bicarbonate Tab 325 MG TAB PO SCH ×2 (08:23→20:10)
[2020-09-20] MEDS ORDERED: Potassium Chloride 20 MEQ TAB PO SCH ×2 (12:45→17:00)
[2020-09-20] MEDS ORDERED: Diltiazem 125 MG in Sodium Chloride 0.9% 100 ML IVPB SCH ×2 (12:45→14:27)
[2020-09-20] MEDS ORDERED: Metoprolol Tartrate 25 MG TAB PO SCH ×2 (13:15→21:00)
[2020-09-20 14:49] LABS: Anion Gap 16 mmol/L (10-20); BUN (Urea Nitrogen) 18 mg/dL (9.8-20.1); Calc. Creatinine Clearance 63 mL/min (70-130); Calcium 8.4 mg/dL (7.8-10.44); Carbon Dioxide 21 mmol/L (23-31); Chloride 97 mmol/L (98-107); Glucose 98 mg/dL (80-115); Potassium 3.5 mmol/L (3.5-5.1); Sodium 130 mmol/L (136-145)
[2020-09-20 14:50] LABS: Magnesium 1.5 mg/dL (1.6-2.6); Phosphorus 2.2 mg/dL (2.3-4.7)
[2020-09-20 15:13] LABS: CKMB 1.5 ng/mL (0-6.6)
[2020-09-20] MEDS ORDERED: Sodium Chloride 0.9% 500 ML IV SCH (17:15)
[2020-09-20 18:40] LABS: Anion Gap 12 mmol/L (10-20); BUN (Urea Nitrogen) 18 mg/dL (9.8-20.1); Calc. Creatinine Clearance 65 mL/min (70-130); Calcium 8.3 mg/dL (7.8-10.44); Carbon Dioxide 24 mmol/L (23-31); Chloride 99 mmol/L (98-107); Glucose 126 mg/dL (80-115); Potassium 4.2 mmol/L (3.5-5.1); Sodium 131 mmol/L (136-145)
[2020-09-20 18:50] LABS: Vancomycin, Trough 11.9 ug/mL
[2020-09-20 19:05] LABS: CKMB 1.8 ng/mL (0-6.6)
[2020-09-20] MEDS ORDERED: Magnesium Sulfate 4 GM in Sodium Chloride 0.9% 250 ML 250 ML IVPB SCH (19:30)
[2020-09-20] MEDS ORDERED: Electrolyte Replacement Protocol 1 EACH FS PRN (19:30)
[2020-09-20] MEDS ORDERED: K-Phos Neutral 250 MG TAB PO SCH (19:30)
[2020-09-20] MEDS ORDERED: Vancomycin 1.5 GRAM/300 ML BAG 1.5 GM in Premix Bag 1 BAG IVPB SCH (20:00)
[2020-09-20] MEDS: Metoprolol Tartrate 25 MG TAB PO SCH (20:11)
[2020-09-20] MEDS: Magnesium 2 GM/50 ML 2 GM in Premix Bag 1 BAG IVPB SCH ×2 (20:11→21:42)
[2020-09-21 04:21] LABS: ALT (SGPT) 21 U/L (8-55); AST (SGOT) 34 U/L (5-34); Albumin 2.3 g/dL (3.4-4.8); Alkaline Phosphatase 148 U/L (40-110); Anion Gap 14 mmol/L (10-20); BUN (Urea Nitrogen) 21 mg/dL (9.8-20.1); Bilirubin, Total 3.2 mg/dL (0.2-1.2); Calc. Creatinine Clearance 66 mL/min (70-130); Carbon Dioxide 19 mmol/L (23-31); Chloride 100 mmol/L (98-107); Globulin 2.8 g/dL (2.4-3.5); Glucose 93 mg/dL (80-115); Magnesium 2.7 mg/dL (1.6-2.6); Phosphorus 2.9 mg/dL (2.3-4.7); Potassium 4.3 mmol/L (3.5-5.1); Protein, Total 5.1 g/dL (5.8-8.1); Sodium 129 mmol/L (136-145)
[2020-09-21 04:38] LABS: Anisocytosis SLIGHT = 6-15 cells (100X) (0-5/hpf); Band 7 % (5-11); Eosinophils 3 % (0-10); Hemoglobin 11.1 g/dL (12.0-16.0); Lymphocytes 18 % (21-51); MDiff Complete? YES; Mean Corpuscular HGB CONC 33.5 g/dL (32.0-36.0); Mean Corpuscular Hemoglobin 33.5 pg (27.0-31.0); Mean Corpuscular Volume 99.9 fL (78.0-98.0); Monocytes 1 % (0-10); Neutrophil 71 % (42-75); Platelet Count 76 thou/uL (130-400); Platelet Morphology Comment Appears Decreased; RBC Distribution Width 17.1 % (11.5-14.5); Red Blood Cell (RBC) Count 3.32 mill/uL (4.20-5.40); White Blood Cell (WBC) Count 7.7 thou/uL (4.8-10.8)
[2020-09-21] MEDS: K-Phos Neutral 250 MG TAB PO SCH ×3 (09:31→17:41)
[2020-09-21] MEDS: Cefepime 1 GM in Sodium Chloride 0.9% 100 ML IVPB SCH ×2 (09:31→21:05)
[2020-09-21] MEDS: Rifaximin 550 MG TAB PO SCH ×2 (09:32→21:05)
[2020-09-21] MEDS: Metoprolol Tartrate 25 MG TAB PO SCH ×2 (09:32→21:05)
[2020-09-21] MEDS: Sodium Bicarbonate Tab 325 MG TAB PO SCH ×2 (09:32→21:05)
[2020-09-22 04:13] LABS: INR-International Normal Ratio 1.5; PTT 40.8 sec (22.9-36.1); Prothrombin Time 18.3 sec (12.0-14.7)
[2020-09-22 04:18] LABS: Hemoglobin 10.6 g/dL (12.0-16.0); Mean Corpuscular HGB CONC 33.2 g/dL (32.0-36.0); Mean Corpuscular Volume 99.5 fL (78.0-98.0); Mean Platelet Volume 7.6 fL (7.4-10.4); Platelet Count 79 thou/uL (130-400); RBC Distribution Width 16.7 % (11.5-14.5); Red Blood Cell (RBC) Count 3.21 mill/uL (4.20-5.40); White Blood Cell (WBC) Count 7.2 thou/uL (4.8-10.8)
[2020-09-22 04:24] LABS: Troponin I 0.038 ng/mL (< 0.028)
[2020-09-22 04:42] LABS: Eosinophils 3 % (0-10); Lymphocytes 13 % (21-51); MDiff Complete? YES; Monocytes 16 % (0-10); Neutrophil 68 % (42-75); Platelet Morphology Comment Appears Decreased
[2020-09-22 04:58] LABS: ALT (SGPT) 17 U/L (8-55); AST (SGOT) 27 U/L (5-34); Albumin 2.1 g/dL (3.4-4.8); Alkaline Phosphatase 148 U/L (40-110); Anion Gap 11 mmol/L (10-20); BUN (Urea Nitrogen) 18 mg/dL (9.8-20.1); Bilirubin, Total 2.5 mg/dL (0.2-1.2); Calc. Creatinine Clearance 68 mL/min (70-130); Calcium 7.4 mg/dL (7.8-10.44); Carbon Dioxide 22 mmol/L (23-31); Chloride 100 mmol/L (98-107); Globulin 2.7 g/dL (2.4-3.5); Glucose 100 mg/dL (80-115); Magnesium 2.2 mg/dL (1.6-2.6); Potassium 3.6 mmol/L (3.5-5.1); Protein, Total 4.8 g/dL (5.8-8.1); Sodium 129 mmol/L (136-145)
[2020-09-22 06:28] VITALS: BP 110/46
[2020-09-22] MEDS: Sodium Bicarbonate Tab 325 MG TAB PO SCH (09:06)
[2020-09-22] MEDS: K-Phos Neutral 250 MG TAB PO SCH (09:06)
[2020-09-22] MEDS: Rifaximin 550 MG TAB PO SCH (09:07)
[2020-09-22] MEDS: Cefepime 1 GM in Sodium Chloride 0.9% 100 ML IVPB SCH (09:07)
[2020-09-22] MEDS: Metoprolol Tartrate 25 MG TAB PO SCH (09:07)
[2020-09-22 11:16] VITALS: TEMP 98.4
== END 2020-09-22 14:32 | disposition home or self-care (01) | DRG 871 ==
LOC: ERS 14:18 → ERHOLD 18:31 → IMCU/EMU 09-19 16:35
PROVIDERS: ADMIT Internal Medicine; ATTEND Internal Medicine
DX: A41.51 Sepsis due to Escherichia coli [E. coli] (principal); K72.00 Acute and subacute hepatic failure without coma; E87.2 Acidosis; N30.00 Acute cystitis without hematuria; E87.1 Hypo-osmolality and hyponatremia; I13.0 Hypertensive heart and chronic kidney disease with heart failure and stage 1 through stage 4 chronic kidney disease, or unspecified chronic kidney disease; N17.9 Acute kidney failure, unspecified; D68.9 Coagulation defect, unspecified; J98.11 Atelectasis; I50.32 Chronic diastolic (congestive) heart failure; J91.8 Pleural effusion in other conditions classified elsewhere; D68.4 Acquired coagulation factor deficiency; Z20.822 Contact with and (suspected) exposure to COVID-19; K76.0 Fatty (change of) liver, not elsewhere classified; K70.31 Alcoholic cirrhosis of liver with ascites; K59.00 Constipation, unspecified; E87.5 Hyperkalemia; N18.30 Chronic kidney disease, stage 3 unspecified; R77.8 Other specified abnormalities of plasma proteins; D69.6 Thrombocytopenia, unspecified; I48.0 Paroxysmal atrial fibrillation; E87.6 Hypokalemia; E83.39 Other disorders of phosphorus metabolism; E83.42 Hypomagnesemia; R65.20 Severe sepsis without septic shock; E88.09 Other disorders of plasma-protein metabolism, not elsewhere classified; Z98.51 Tubal ligation status; Z90.49 Acquired absence of other specified parts of digestive tract; Z90.710 Acquired absence of both cervix and uterus; Z79.899 Other long term (current) drug therapy; Z91.14 Patient's other noncompliance with medication regimen; T85.9XXA Unspecified complication of internal prosthetic device, implant and graft, initial encounter; Y83.8 Other surgical procedures as the cause of abnormal reaction of the patient, or of later complication, without mention of misadventure at the time of the procedure
CPT/HCPCS: 0240U; 36415; 36416; 36600; 71045; 71275; 74177; 76705; 80048; 80053; 80202; 81003; 81015; 82140; 82553; 82805; 83605; 83690; 83735; 83880; 84100; 84484; 85025; 85379; 85610; 85730; 87040; 87077; 87086; 87186; 93005; 93010; 93306; 94640; 96365; 96366; 96367; 96375; J0692; J1815; J2001; J2270; J2405; J3370; J3475; J3490; J7620; P9045; Q9967

== ENCOUNTER 2021-01-24 01:59 | Emergency (ER) | payer MEDICARE, OTHER ==
[2021-01-24 02:41] LABS: ALT (SGPT) 17 U/L (8-55); AST (SGOT) 36 U/L (5-34); Albumin 2.8 g/dL (3.4-4.8); Alkaline Phosphatase 205 U/L (40-110); Anion Gap 15 mmol/L (10-20); BUN (Urea Nitrogen) 16 mg/dL (9.8-20.1); Bilirubin, Total 2.1 mg/dL (0.2-1.2); Calc. Creatinine Clearance 0 mL/min (70-130); Calcium 9.1 mg/dL (7.8-10.44); Carbon Dioxide 23 mmol/L (23-31); Chloride 96 mmol/L (98-107); Globulin 5.5 g/dL (2.4-3.5); Glucose 430 mg/dL (80-115); Potassium 3.2 mmol/L (3.5-5.1); Protein, Total 8.3 g/dL (5.8-8.1); Sodium 131 mmol/L (136-145)
[2021-01-24] MEDS ORDERED: Aspirin Chewable 81 MG TAB ONE (02:54)
[2021-01-24 02:55] LABS: #Lymphocytes 0.7 thou/uL (1.20-3.40); #Monocytes 0.1 thou/uL (0.11-0.59); #Neutrophils 5.5 thou/uL (1.40-6.50); %Basophils 0.3 % (0.0-1.0); %Eosinophils 0.1 % (0.0-10.0); %Lymphocytes 11.2 % (21.0-51.0); %Monocytes 1.3 % (0.0-10.0); %Neutrophils 87.1 % (42.0-75.0); Hemoglobin 14.4 g/dL (12.0-16.0); Mean Corpuscular HGB CONC 34.4 g/dL (32.0-36.0); Mean Corpuscular Hemoglobin 34.2 pg (27.0-31.0); Mean Corpuscular Volume 99.3 fL (78.0-98.0); Mean Platelet Volume 7.6 fL (7.4-10.4); Platelet Count 122 thou/uL (130-400); RBC Distribution Width 14.4 % (11.5-14.5); Red Blood Cell (RBC) Count 4.22 mill/uL (4.20-5.40); White Blood Cell (WBC) Count 6.3 thou/uL (4.8-10.8)
[2021-01-24] MEDS ORDERED: Insulin Regular 300 UNITS/3 ML VIAL ONE (04:04)
== END 2021-01-24 06:06 | disposition home or self-care (01) ==
LOC: ERS 01:59
DX: R07.89 Other chest pain (principal); E11.9 Type 2 diabetes mellitus without complications; K74.60 Unspecified cirrhosis of liver; I10 Essential (primary) hypertension; Z87.891 Personal history of nicotine dependence
CPT/HCPCS: 36415; 36416; 71045; 80053; 84484; 85025; 93005; J1815

== ENCOUNTER 2021-11-30 02:27 | Observation (INO) | payer MEDICARE, OTHER ==
[2021-11-30 04:08] VITALS: BMI 26.7
[2021-11-30 06:35] LABS: Anion Gap 12 mmol/L (10-20); BUN (Urea Nitrogen) 21 mg/dL (9.8-20.1); Calc. Creatinine Clearance 29 mL/min (70-130); Calcium 9.4 mg/dL (7.8-10.44); Carbon Dioxide 20 mmol/L (23-31); Chloride 104 mmol/L (98-107); Glucose 106 mg/dL (80-115); Potassium 3.7 mmol/L (3.5-5.1); Sodium 132 mmol/L (136-145)
[2021-11-30 06:45] LABS: #Eosinphils 0.3 thou/uL (0.0-0.7); #Lymphocytes 1.5 thou/uL (1.20-3.40); #Monocytes 0.8 thou/uL (0.11-0.59); #Neutrophils 4.3 thou/uL (1.40-6.50); %Basophils 0.6 % (0.0-1.0); %Eosinophils 4.1 % (0.0-10.0); %Lymphocytes 21.2 % (21.0-51.0); %Monocytes 11.9 % (0.0-10.0); %Neutrophils 62.2 % (42.0-75.0); Hemoglobin 12.8 g/dL (12.0-16.0); Mean Corpuscular HGB CONC 34.6 g/dL (32.0-36.0); Mean Corpuscular Hemoglobin 34.5 pg (27.0-31.0); Mean Corpuscular Volume 99.8 fL (78.0-98.0); Mean Platelet Volume 7.3 fL (7.4-10.4); Platelet Count 96 thou/uL (130-400); Platelet Morphology Comment Appears Decreased; RBC Distribution Width 13.3 % (11.5-14.5); Red Blood Cell (RBC) Count 3.72 mill/uL (4.20-5.40); White Blood Cell (WBC) Count 6.9 thou/uL (4.8-10.8)
[2021-11-30] MEDS ORDERED: Spironolactone 100 MG TAB PO SCH (08:00)
[2021-11-30] MEDS ORDERED: Ondansetron PF 4 MG/2 ML Vial IVP PRN (08:16)
[2021-11-30] MEDS ORDERED: Ondansetron ODT 4 MG TAB PO PRN (08:16)
[2021-11-30] MEDS: Potassium Chloride 20 MEQ TAB PO SCH (08:52)
[2021-11-30] MEDS ORDERED: Non-Formulary Item 1 EACH (Spironolactone [Spironolactone] 50 MG Tablet) PO SCH (09:00)
[2021-11-30] MEDS ORDERED: Famotidine 20 MG TAB PO SCH (09:00)
[2021-11-30] MEDS ORDERED: Furosemide 80 MG TAB PO SCH (09:00)
[2021-11-30] MEDS ORDERED: Furosemide 40 MG TAB PO SCH (09:00)
[2021-11-30] MEDS: Sodium Chloride 0.9% 1,000 ML IV SCH ×2 (09:35→17:04)
[2021-11-30] MEDS ORDERED: Acetaminophen 325 MG TAB PO SCH ×2 (10:45→18:45)
[2021-11-30 11:33] LABS: INR-International Normal Ratio 1.3; Prothrombin Time 16.3 sec (12.0-14.7)
[2021-11-30] MEDS: Rifaximin 550 MG TAB PO SCH (21:26)
[2021-12-01] MEDS: Sodium Chloride 0.9% 1,000 ML IV SCH (05:47)
[2021-12-01 06:02] LABS: #Eosinphils 0.3 thou/uL (0.0-0.7); #Lymphocytes 1.1 thou/uL (1.20-3.40); #Monocytes 0.4 thou/uL (0.11-0.59); #Neutrophils 2.5 thou/uL (1.40-6.50); %Basophils 0.7 % (0.0-1.0); %Eosinophils 7.6 % (0.0-10.0); %Lymphocytes 25.4 % (21.0-51.0); %Monocytes 9.1 % (0.0-10.0); %Neutrophils 57.2 % (42.0-75.0); Hemoglobin 13.8 g/dL (12.0-16.0); Mean Corpuscular HGB CONC 32.6 g/dL (32.0-36.0); Mean Platelet Volume 8.1 fL (7.4-10.4); Platelet Count 113 thou/uL (130-400); RBC Distribution Width 13.6 % (11.5-14.5); Red Blood Cell (RBC) Count 4.07 mill/uL (4.20-5.40); White Blood Cell (WBC) Count 4.3 thou/uL (4.8-10.8)
[2021-12-01 06:35] LABS: ALT (SGPT) 21 U/L (8-55); AST (SGOT) 49 U/L (5-34); Albumin 2.1 g/dL (3.4-4.8); Alkaline Phosphatase 149 U/L (40-110); Anion Gap 10 mmol/L (10-20); BUN (Urea Nitrogen) 13 mg/dL (9.8-20.1); Bilirubin, Total 2.5 mg/dL (0.2-1.2); Calc. Creatinine Clearance 46 mL/min (70-130); Calcium 8.8 mg/dL (7.8-10.44); Carbon Dioxide 17 mmol/L (23-31); Chloride 110 mmol/L (98-107); Globulin 4.2 g/dL (2.4-3.5); Glucose 97 mg/dL (80-115); Potassium 4.2 mmol/L (3.5-5.1); Protein, Total 6.3 g/dL (5.8-8.1); Sodium 133 mmol/L (136-145)
[2021-12-01] MEDS ORDERED: Dextrose 5 %-0.45 % NaCl 1,000 ML IV SCH (08:00)
[2021-12-01] MEDS ORDERED: Famotidine 20 MG TAB PO SCH (09:00)
[2021-12-01] MEDS ORDERED: Enoxaparin Sodium 30 MG/0.3 ML SYRINGE SC SCH (09:00)
[2021-12-01] MEDS: Potassium Chloride 20 MEQ TAB PO SCH (09:12)
[2021-12-01] MEDS: Rifaximin 550 MG TAB PO SCH (09:12)
[2021-12-01 17:28] VITALS: BP 123/67; TEMP 97.8
== END 2021-12-01 17:49 | disposition home or self-care (01) ==
LOC: T4-A 03:49
PROVIDERS: ADMIT Internal Medicine; ATTEND Internal Medicine
DX: K72.90 Hepatic failure, unspecified without coma (principal); I12.9 Hypertensive chronic kidney disease with stage 1 through stage 4 chronic kidney disease, or unspecified chronic kidney disease; N18.9 Chronic kidney disease, unspecified; N17.9 Acute kidney failure, unspecified; E87.1 Hypo-osmolality and hyponatremia; K59.00 Constipation, unspecified; N39.0 Urinary tract infection, site not specified; J90 Pleural effusion, not elsewhere classified; K74.60 Unspecified cirrhosis of liver; I85.10 Secondary esophageal varices without bleeding; I48.0 Paroxysmal atrial fibrillation; D69.6 Thrombocytopenia, unspecified; K21.9 Gastro-esophageal reflux disease without esophagitis; Z79.899 Other long term (current) drug therapy; Z20.822 Contact with and (suspected) exposure to COVID-19; I10 Essential (primary) hypertension; Z87.19 Personal history of other diseases of the digestive system; Z87.891 Personal history of nicotine dependence
CPT/HCPCS: 74176; 80048; 80053 ×2; 82140; 83690; 84484; 85025 ×3; 85610; 87086; 93005; 96360; 96372; 99285; G0378 ×2; U0003; U0005; 36415; 81003; 81015; J1650; J7042; J7050

== ENCOUNTER 2022-01-17 22:29 | Emergency (ER) | payer MEDICARE, OTHER ==
[2022-01-18 00:05] LABS: Hemoglobin 14.5 g/dL (12.0-16.0); Mean Corpuscular HGB CONC 35.2 g/dL (32.0-36.0); Mean Corpuscular Hemoglobin 34.3 pg (27.0-31.0); Mean Corpuscular Volume 97.6 fL (78.0-98.0); Mean Platelet Volume 7.7 fL (7.4-10.4); Platelet Count 101 thou/uL (130-400); Red Blood Cell (RBC) Count 4.22 mill/uL (4.20-5.40)
[2022-01-18 00:20] LABS: ALT (SGPT) 23 U/L (8-55); AST (SGOT) 41 U/L (5-34); Albumin 2.8 g/dL (3.4-4.8); Alkaline Phosphatase 141 U/L (40-110); Anion Gap 17 mmol/L (10-20); BUN (Urea Nitrogen) 19 mg/dL (9.8-20.1); Bilirubin, Total 2.6 mg/dL (0.2-1.2); Calc. Creatinine Clearance 0 mL/min (70-130); Calcium 9.5 mg/dL (7.8-10.44); Carbon Dioxide 20 mmol/L (23-31); Chloride 100 mmol/L (98-107); Estimated GFR 30; Globulin 4.4 g/dL (2.4-3.5); Glucose 158 mg/dL (80-115); Potassium 3.2 mmol/L (3.5-5.1); Protein, Total 7.2 g/dL (5.8-8.1); Sodium 134 mmol/L (136-145)
[2022-01-18 00:22] LABS: Band 10 % (5-11); Lymphocytes 3 % (21-51); MDiff Complete? YES; Monocytes 11 % (0-10); Neutrophil 76 % (42-75); Platelet Morphology Comment Appears Decreased; RBC Morphology Normal
[2022-01-18 01:14] LABS: Magnesium 1.8 mg/dL (1.6-2.6)
[2022-01-18] MEDS ORDERED: Potassium Chloride 20 MEQ TAB ONE (01:48)
== END 2022-01-18 03:00 | disposition short-term general hospital (02) ==
LOC: ERS 22:29
DX: K72.90 Hepatic failure, unspecified without coma (principal); I10 Essential (primary) hypertension; Z87.891 Personal history of nicotine dependence; Z79.899 Other long term (current) drug therapy
CPT/HCPCS: 36415; 71045; 80053; 82140; 83735; 84484; 85025; 93005